=== PATIENT | female | born 1955 | race Caucasian/White ===

== ENCOUNTER 2016-07-19 09:20 | Outpatient (CLI) | payer MEDICARE, OTHER ==
[2013-11-27 13:50] VITALS: BP 158/66
[2016-07-19 10:26] LABS: eGFR (African) > 60; eGFR (Non-African) > 60
== END 2016-07-19 09:22 ==
LOC: LAB 09:20
PROVIDERS: ATTEND Nurse Practitioner
DX: E10.9 Type 1 diabetes mellitus without complications (principal)
CPT/HCPCS: 36415; 80053; 82043; 83036; 84443

== ENCOUNTER 2016-08-15 08:04 | Emergency (ER) | payer MEDICARE, OTHER ==
[2016-08-15] MEDS ORDERED: 0.9 % SODIUM CHLORIDE 1,000 ML IV ONE ×2 (08:24→09:49)
[2016-08-15] MEDS ORDERED: ONDANSETRON HCL/PF 4 MG/ 2ML VIAL IVP ONE (08:24)
--- NOTE | 2016-08-15 08:25 | ED Physician Documentation ---
General Adult - HISTORIAN Historian: patient - HPI Stated Complaint: Nausea/vomiting, Diabetes I Chief Complaint: General Adult Timing: still present Severity: moderate Further Comments: yes (Pt is a 60 yo female with DMI on an insulin pump, who has had n/v/diarrhea that began 1 week ago. Pt had a blood glucose=60 this am at home. 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.) - ROS CONST: weakness, other (malaise) EYES/ENT: none CVS/RESP: none GI/: diarrhea MS/SKIN/LYMPH: none - PAST HX Past History: other (DMI with insulin pump) Allergies/Adverse Reactions: Allergies Allergy/AdvReac Type Severity Reaction Status Date / Time No Known Allergies Allergy Verified 08/15/16 08:41 Home Medications: Ambulatory Orders Medication Instructions Recorded Gabapentin [Gabapentin] 600 mg PO TID 04/22/13 Glucagon,Human Recombinant 1 mg IM DAILY 04/22/13 [Glucagon] Levothyroxine Sodium 75 mcg PO DAILY 04/22/13 Quinapril HCl [Accupril] 20 mg PO DAILY 04/22/13 Simvastatin [Simvastatin] 40 mg PO DAILY 04/22/13 Pantoprazole Sodium [Protonix] 20 mg PO DAILY u2 12/02/15 Ciprofloxacin HCl [Cipro] 500 mg PO BID #10 tablet 08/15/16 - SOCIAL HX Smoking History: non-smoker - FAMILY HX Family History: No - VITAL SIGNS Vital Signs: Vital Signs Temp Pulse Resp BP Pulse Ox 158/66 11/27/13 13:46 - REVIEWED ASSESSMENTS Nursing Assessment Reviewed: Yes Vitals Reviewed: Yes Progress - Progress Progress: NS IVF 1 L x 2 Zofran 4 mg IV much improved wbc=18.0 with L shift Will Rx Ciprofloxacin 500 mg. Take one by mouth every 12 hrs for 5 days. General Adult Physical Exam - PHYSICAL EXAM GENERAL APPEARANCE: mild distress EENT: eye inspection normal, ENT inspection normal, pharynx normal NECK: normal inspection, supple RESPIRATORY: no resp distress, chest non-tender, breath sounds normal CVS: reg rate & rhythm, heart sounds normal ABDOMEN: soft, no organomegaly, normal bowel sounds, tenderness (diffuse abd tenderness) BACK: normal inspection, no CVA tenderness SKIN: warm/dry, normal color EXTREMITIES: non-tender, normal range of motion, no evidence of injury NEURO: oriented X3, motor nml, sensation nml Discharge Clincal Impression: Hypoglycemia, DMI, Gastroenteritis Prescriptions: Ciprofloxacin HCl [Cipro] 500 mg PO BID #10 tablet Referrals: Francisco Hines MD [Primary Care Provider] - Home Medications: Ambulatory Orders Gabapentin [Gabapentin] 600 mg PO TID 04/22/13 Glucagon,Human Recombinant [Glucagon] 1 mg IM DAILY 04/22/13 Levothyroxine Sodium 75 mcg PO DAILY 04/22/13 Quinapril HCl [Accupril] 20 mg PO DAILY 04/22/13 Simvastatin [Simvastatin] 40 mg PO DAILY 04/22/13 Pantoprazole Sodium [Protonix] 20 mg PO DAILY u2 12/02/15 Ciprofloxacin HCl [Cipro] 500 mg PO BID #10 tablet 08/15/16 Condition: Good Disposition: 01 HOME, SELF-CARE Decision to Admit: NO Decision Time: 10:48
[2016-08-15 08:47] LABS: BASOPHILS % 0.3 (0.0-1.5); EOSINOPHILS % 0.3 % (0.0-6.8); LYMPHOCYTES # 1.3 # k/uL (0.6-4.0); MEAN CORPUSCULAR HEMOGLOBIN 29.3 pg (28.0-34.0); MONOCYTES # 0.6 # k/uL (0.0-0.9); MONOCYTES % 3.3 % (0.0-11.0); NEUTROPHILS # 15.8 # k/uL (1.4-7.7)
[2016-08-15 09:08] LABS: eGFR (African) > 60; eGFR (Non-African) > 60
[2016-08-15 09:53] LABS: APPEARANCE,URINE Clear (CLEAR); COLOR,URINE Yellow (YELLOW); OCCULT BLOOD,URINE Negative (NEGATIVE); UROBILINOGEN URINE 0.2 Eu (0.2-1.0)
[2016-08-15 10:04] LABS: AMORPHOUS SEDIMENT,UR FEW (NEGATIVE)
[2016-08-15 11:04] VITALS: BP 167/72
== END 2016-08-15 11:03 | disposition home or self-care (01) ==
LOC: ED 08:04
DX: E10.52 Type 1 diabetes mellitus with diabetic peripheral angiopathy with gangrene (principal); Z79.4 Long term (current) use of insulin; Z96.41 Presence of insulin pump (external) (internal); K52.9 Noninfective gastroenteritis and colitis, unspecified
CPT/HCPCS: 80053; 81002; 85025; J2405; J7030; 96361; 96374; 99283; 99284; S1016

== ENCOUNTER 2016-09-05 15:29 | Outpatient (CLI) | payer MEDICARE, OTHER ==
--- NOTE | 2016-09-05 16:15 | Diagnostic Imaging Report ---
[facility] [address] [facility] [address] 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 HX OF FRACTURE. PT DIABETIC STATES DOCTOR IS LOOKING FOR AN INFECTION Findings: Comparison: March 22, 2016 Old fracture deformities of the shafts of the left 2nd, 3rd and 4th metatarsals Vascular calcification is present No acute fracture No osseous erosion or periosteal reaction is seen. Sclerosis left great toe terminal phalynx Impression: 1. No evidence of osseous erosion or periosteal reaction, no plain radiographic evidence of osteomyelitis. 2. Old fracture deformities left 2nd to 4th metatarsals. Sclerosis left great toe terminal phalynx 3.Vascular calcification Electronically signed on Sep 05, 2016 4:10:34 PM RAMP SUPERVISOR by: Clarita COOK
== END 2016-09-05 15:30 ==
LOC: RAD 15:29
PROVIDERS: ATTEND Family Medicine
DX: M79.675 Pain in left toe(s) (principal)
CPT/HCPCS: 73660

== ENCOUNTER 2016-09-20 13:07 | Outpatient (CLI) | payer MEDICARE, OTHER | END 2016-09-20 13:30 | LOC: POD 13:07 | PROVIDERS: ATTEND Podiatrist | DX: E11.9 Type 2 diabetes mellitus without complications (principal); M20.22 Hallux rigidus, left foot | CPT/HCPCS: G0463 ==

== ENCOUNTER 2016-10-27 09:34 | Outpatient (CLI) | payer MEDICARE, OTHER ==
[2016-10-27 10:22] LABS: eGFR (African) > 60; eGFR (Non-African) > 60
== END 2016-10-27 09:35 ==
LOC: LAB 09:34
PROVIDERS: ATTEND Nurse Practitioner
DX: E10.9 Type 1 diabetes mellitus without complications (principal)
CPT/HCPCS: 36415; 80053; 80061; 83036

== ENCOUNTER 2017-01-18 11:25 | Outpatient (CLI) | payer MEDICARE, OTHER ==
[2017-01-18 11:45] LABS: BASOPHILS % 0.5 (0.0-1.5); EOSINOPHILS % 0.7 % (0.0-6.8); MEAN CORPUSCULAR VOLUME 91.6 fl (80.0-100.0); MONOCYTES % 3.6 % (0.0-11.0); NEUTROPHILS # 6.8 # k/uL (1.4-7.7)
== END 2017-01-18 11:26 ==
LOC: LAB 11:25
PROVIDERS: ATTEND Physician Assistant
DX: R53.83 Other fatigue (principal)
CPT/HCPCS: 36415; 84443; 85025

== ENCOUNTER 2017-01-25 19:48 | Emergency (ER) | payer MEDICARE, OTHER ==
[2017-01-25] MEDS ORDERED: ONDANSETRON HCL 4 MG TAB.RAPDIS ONE (19:57)
[2017-01-25] MEDS ORDERED: ONDANSETRON HCL/PF 4 MG/ 2ML VIAL ONE (20:08)
[2017-01-25] MEDS ORDERED: DEXTROSE 50% 50 ML DISP.SYRIN IVP ONE (20:08)
[2017-01-25] MEDS ORDERED: ONDANSETRON HCL/PF 4 MG/ 2ML VIAL IVP ONE (20:09)
[2017-01-25] MEDS ORDERED: ONDANSETRON HCL 4 MG TAB.RAPDIS PO ONE (20:09)
[2017-01-25 20:22] LABS: BASOPHILS % 0.8 (0.0-1.5); EOSINOPHILS % 2.1 % (0.0-6.8); MEAN CORPUSCULAR HEMOGLOBIN 30.2 pg (28.0-34.0); MEAN CORPUSCULAR VOLUME 92.9 fl (80.0-100.0); MONOCYTES % 6.7 % (0.0-11.0)
[2017-01-25] MEDS ORDERED: 0.9 % SODIUM CHLORIDE 1,000 ML IV ONE ×2 (20:47→20:50)
--- NOTE | 2017-01-25 21:23 | ED Physician Documentation ---
Seizure - HISTORIAN Historian: spouse - HPI Chief Complaint: Seizure Additional Information: she is diabetic, that has seizures when blood glucose gets low. Her monitors her health very well. He was present when this occurred. She was standing in the kitchen and then fell, he got her up to chair, checked her BS and it was 50, he attempted to give her sugar pills, but she was seizing so he called EMS. this occurs freq with her and he can usually take care of it at home. She has been lethargic past 2 weeks and was worked up in her PCP office this week. She has had 1mg glucogon and 25mg D50. her BS is currently 171, but she is a little post-prandial and nauseated, which her says is typical. she had no injury associated with this. Timing/Onset/Duration: single episode Last known Well Date: 01/25/17 Last Known Well Time: 20:15 Last known Well Code/Unknown Code: Known Witnessed By: family Preceding Symptoms: other (she has an insulin pump and her doesnt think she ate much today. her siezures always occur due to low blood sugar) Character of Seizure(s): lost consciousness, unresponsiveness, "shaking all over " Postictal Symptoms: other (sleepy) Location of Injury: none Further Comments: no - ROS NEURO/PSYCH: denies: headache, dizziness EYES/ENT: none CVS/RESP: none GI/: nausea. denies: adominal pain, vomiting MS/SKIN/LYMPH: none - PAST HX Previous seizure/seizure disorder: frequent, occasional Etiology: etiology Other History: none Surgeries/Procedures: none Immunizations: UTD Allergies/Adverse Reactions: Allergies Allergy/AdvReac Type Severity Reaction Status Date / Time No Known Allergies Allergy Verified 01/25/17 20:06 Home Medications: Ambulatory Orders Medication Instructions Recorded Gabapentin [Gabapentin] 600 mg PO TID 04/22/13 Glucagon,Human Recombinant 1 mg IM DAILY 04/22/13 [Glucagon] Levothyroxine Sodium 75 mcg PO DAILY 04/22/13 Quinapril HCl [Accupril] 20 mg PO DAILY 04/22/13 Simvastatin [Simvastatin] 40 mg PO DAILY 04/22/13 Ciprofloxacin HCl [Cipro] 500 mg PO BID #10 tablet 08/15/16 - SOCIAL HX Smoking History: non-smoker Alcohol Use: none Drug Use: none - FAMILY HX Family History: none - VITAL SIGNS Vital Signs: Vital Signs Temp Pulse Resp BP Pulse Ox 97.9 F 79 12 161/70 97 01/25/17 19:48 01/25/17 19:48 01/25/17 19:48 01/25/17 19:48 01/25/17 19:48 - REVIEWED ASSESSMENTS Nursing Assessment Reviewed: Yes Vitals Reviewed: Yes Progress - Progress Progress: she's feeling better, nausea has resolved, labs look ok. she desires to go home ED Results Lab/Radiology - Lab Results Lab Results: Lab Results 01/25/17 01/25/17 20:16 20:16 WBC 12.80 K/ul H K/ul (4.00-12.00) RBC 3.92 M/ul M/ul (3.90-5.20) Hgb 11.8 g/dL L g/dL (12.0-16.0) Hct 36.4 % % (34.5-46.5) MCV 92.9 fl fl (80.0-100.0) MCH 30.2 pg pg (28.0-34.0) MCHC 32.5 g/dL g/dL (30.0-36.0) RDW 13.2 % % (11.3-14.3) Plt Count 315 K/mm3 K/mm3 (130-400) Neut % (Auto) 54.6 % % (39.0-79.0) Lymph % (Auto) 32.9 % % (16.0-50.0) [place] % (Auto) 6.7 % % (0.0-11.0) Eos % (Auto) 2.1 % % (0.0-6.8) Baso % (Auto) 0.8 (0.0-1.5) Neut # (Auto) 7.0 # k/uL # k/uL (1.4-7.7) Lymph # (Auto) 4.2 # k/uL H # k/uL (0.6-4.0) [place] # (Auto) 0.8 # k/uL # k/uL (0.0-0.9) Eos # (Auto) 0.3 # k/uL # k/uL (0.0-0.6) Baso # (Auto) 0.1 # k/uL # k/uL (0.0-0.5) Reactive Lymphs % 3.0 % % (0.0-5.0) Reactive Lymphs # 0.4 # k/uL # k/uL (0.0-0.8) Sodium 143 mmol/L mmol/L (136-145) Potassium 4.0 mmol/L mmol/L (3.5-5.0) Chloride 102 mmol/L mmol/L (98-110) Carbon Dioxide 22 mmol/L mmol/L (20-32) BUN 33 mg/dL H mg/dL (10-26) Creatinine 2.8 mg/dL H mg/dL (0.4-1.5) Estimated Creat Clear 28 Est GFR ( Amer) 22 L (60 - ) Est GFR (Non-Af Amer) 18 L (60 - ) Glucose 41 mg/dL L mg/dL (70-99) Calcium 9.8 mg/dL mg/dL (8.5-10.5) Total Bilirubin 0.2 mg/dL mg/dL (0.2-1.2) AST 32 U/L U/L (0-41) ALT 19 U/L U/L (0-45) Alkaline Phosphatase 100 U/L U/L (46-116) Total Protein 7.3 g/dL g/dL (6.0-8.5) Albumin 4.6 g/dL g/dL (3.0-5.5) - Orders Orders: ED Orders Category Date Time Status CBC/PLATELET/DIFF Routine Lab 01/25/17 20:16 Completed CMP Routine Lab 01/25/17 20:16 Completed 0.9 % Sodium Chloride [Normal Saline] 1,000 ml Med 01/25/17 20:47 Discontinued IV .STK-MED 0.9 % Sodium Chloride [Normal Saline] 1,000 ml Med 01/25/17 20:50 Active IV Q1H Chem Sticks Med 01/25/17 19:48 Ordered 1 each CHEMQ PRN Dextrose 50% [Dextrose 50%-Water Syringe] Med 01/25/17 20:08 Discontinued 25 ml IVP NOW ONE Ondansetron HCl Rapdis [Zofran Odt] Med 01/25/17 19:57 Discontinued 4 mg .ROUTE .STK-MED ONE Ondansetron HCl Rapdis [Zofran Odt] Med 01/25/17 20:09 Discontinued 4 mg PO NOW ONE Ondansetron HCl/Pf [Zofran 4 mg/2 ml] Med 01/25/17 20:08 Discontinued 4 mg .ROUTE .STK-MED ONE Ondansetron HCl/Pf [Zofran 4 mg/2 ml] Med 01/25/17 20:09 Discontinued 4 mg IVP NOW ONE Oxygen Daily Oxygen 01/25/17 20:15 Ordered Seizure Physical Exam - Physical Exam General Appearance: no acute distress, alert, lethargic Altered Mental Status Higher Functions: oriented x3, no evidence of acute CVA, abnml respond to command, eyes open, slow to respond EENT: nml eye inspection, nml ENT inspection Neck/Back: normal inspection. No: lymphadenopathy, carotid bruit Respiratory: no resp. distress, breath sounds nml, no evidence of rib injury. No: wheezes, rales, rhonchi, crepitus CVS: reg rate & rhythm, heart sounds normal, equal pulses Abdomen: non-tender Skin: warm/dry, normal color Extremities: normal inspection, no pedal edema Observed Seizure Activity in ED: generalized - Nexus Criteria Neg Nexus Criteria: Nexus criteria neg Discharge Clincal Impression: Hypoglycemia, Seizure Referrals: Francisco Hines MD [Primary Care Provider] - 2 Days Home Medications: Ambulatory Orders Gabapentin [Gabapentin] 600 mg PO TID 04/22/13 Glucagon,Human Recombinant [Glucagon] 1 mg IM DAILY 04/22/13 Levothyroxine Sodium 75 mcg PO DAILY 04/22/13 Quinapril HCl [Accupril] 20 mg PO DAILY 04/22/13 Simvastatin [Simvastatin] 40 mg PO DAILY 04/22/13 Ciprofloxacin HCl [Cipro] 500 mg PO BID #10 tablet 08/15/16 Condition: Good Disposition: 01 HOME, SELF-CARE Decision to Admit: NO Date of Decison to Admit: 01/25/17 Decision Time: 21:19
[2017-01-25 22:08] VITALS: BP 143/65
== END 2017-01-25 21:55 | disposition home or self-care (01) ==
LOC: ED 19:48
DX: E11.649 Type 2 diabetes mellitus with hypoglycemia without coma (principal); G40.409 Other generalized epilepsy and epileptic syndromes, not intractable, without status epilepticus
CPT/HCPCS: 80053; 85025; A9270; J2405; J7030; 96361; 96374; 96375; 99283; S1016

== ENCOUNTER 2017-01-27 10:25 | Outpatient (CLI) | payer MEDICARE, OTHER ==
[2017-01-27 11:09] LABS: eGFR (African) 39; eGFR (Non-African) 33
== END 2017-01-27 10:26 ==
LOC: LAB 10:25
PROVIDERS: ATTEND Nurse Practitioner
DX: E10.9 Type 1 diabetes mellitus without complications (principal)
CPT/HCPCS: 36415; 80053; 80061; 83036; 84443

== ENCOUNTER 2017-04-24 10:36 | Outpatient (CLI) | payer MEDICARE, OTHER ==
[2017-04-24 11:30] LABS: eGFR (African) > 60; eGFR (Non-African) 41
== END 2017-04-24 10:37 ==
LOC: LAB 10:36
PROVIDERS: ATTEND Nurse Practitioner
DX: E10.9 Type 1 diabetes mellitus without complications (principal)
CPT/HCPCS: 36415; 80053; 83036; 84443

== ENCOUNTER 2017-07-27 09:21 | Outpatient (CLI) | payer MEDICARE, OTHER ==
[2017-07-27 10:13] LABS: eGFR (African) > 60; eGFR (Non-African) > 60
== END 2017-07-27 09:22 ==
LOC: LAB 09:21
PROVIDERS: ATTEND Nurse Practitioner
DX: E10.9 Type 1 diabetes mellitus without complications (principal)
CPT/HCPCS: 36415; 80053; 80061; 82043; 83036

== ENCOUNTER 2017-08-11 20:31 | Emergency (ER) | payer MEDICARE, OTHER ==
[2017-08-11 21:00] LABS: BASOPHILS % 0.6 (0.0-1.5); EOSINOPHILS % 1.1 % (0.0-6.8); MEAN CORPUSCULAR HEMOGLOBIN 30.6 pg (28.0-34.0); MEAN CORPUSCULAR VOLUME 90.9 fl (80.0-100.0); MONOCYTES % 6.8 % (0.0-11.0); NEUTROPHILS # 6.3 # k/uL (1.4-7.7)
[2017-08-11] MEDS: ACETAMINOPHEN 500 MG TABLET PO ONE (21:02)
[2017-08-11] MEDS: 0.9 % SODIUM CHLORIDE 1,000 ML IV ONE (21:02)
[2017-08-11] MEDS: GUAIFENESIN/CODEINE 10 ML S/F LIQUID DOSE CUP PO ONE ×2 (21:02→21:41)
[2017-08-11] MEDS: KETOROLAC TROMETHAMINE 30 MG/1ML VIAL IVP ONE (21:05)
[2017-08-11 21:14] LABS: eGFR (African) 42; eGFR (Non-African) 35
--- NOTE | 2017-08-11 21:22 | ED Physician Documentation ---
Upper Respiratory Symptoms - HISTORIAN Historian: patient - HPI Chief Complaint: Cough/ Upper Respiratory Onset: days ago Further Comments: yes (61 year old female patient presents with complaints of "flu". Patient states she finished her tamiflu today, "I feel worse". C/O severe cough, concerned she has pneumonia. Using robitussin for cough) - ROS CONST/EYES: other (body aches) CVS/RESP: other (cough). denies: chest pain, shortness of breath, palpitations LYMPH: denies: leg swelling, rash, swollen glands, ankle swelling, other GI/: none NEURO/PSYCH: denies: fainting, dizziness, confusion, anxiety, depression, other MS/SKIN: denies: joint pain, muscle aches, rash, other - PAST HX Lung Disease: none PE Risk Factors: hypertension Other History: diabetes Type 2, other (hypothyroidism, HLD) Allergies/Adverse Reactions: Allergies Allergy/AdvReac Type Severity Reaction Status Date / Time No Known Allergies Allergy Verified 08/11/17 20:42 Home Medications: Ambulatory Orders Medication Instructions Recorded Gabapentin [Gabapentin] 600 mg PO TID 04/22/13 Glucagon,Human Recombinant 1 mg IM DAILY 04/22/13 [Glucagon] Levothyroxine Sodium 75 mcg PO DAILY 04/22/13 Quinapril HCl [Accupril] 20 mg PO DAILY 04/22/13 Simvastatin [Simvastatin] 40 mg PO DAILY 04/22/13 Ciprofloxacin HCl [Cipro] 500 mg PO BID #10 tablet 08/15/16 - SOCIAL HX Smoking History: non-smoker - FAMILY HX Family History: none - VITAL SIGNS Vital Signs: Vital Signs Temp Pulse Resp BP Pulse Ox 99.5 F 82 16 146/60 100 08/11/17 21:50 08/11/17 21:50 08/11/17 21:50 08/11/17 21:50 08/11/17 21:50 - REVIEWED ASSESSMENTS Nursing Assessment Reviewed: Yes Vitals Reviewed: Yes Progress - Progress Progress: Patient medicated in ER with robitussin AC, toradol, tylenol and 1L NS. At discharge, patient states she feels much better. ED Results Lab/Radiology - Lab Results Lab Results: Lab Results 08/11/17 08/11/17 20:55 20:55 WBC 9.00 K/ul K/ul (4.00-12.00) RBC 3.83 M/ul L M/ul (3.90-5.20) Hgb 11.7 g/dL L g/dL (12.0-16.0) Hct 34.8 % % (34.5-46.5) MCV 90.9 fl fl (80.0-100.0) MCH 30.6 pg pg (28.0-34.0) MCHC 33.7 g/dL g/dL (30.0-36.0) RDW 12.6 % % (11.3-14.3) Plt Count 359 K/mm3 K/mm3 (130-400) Neut % (Auto) 69.9 % % (39.0-79.0) Lymph % (Auto) 19.9 % % (16.0-50.0) [place] % (Auto) 6.8 % % (0.0-11.0) Eos % (Auto) 1.1 % % (0.0-6.8) Baso % (Auto) 0.6 (0.0-1.5) Neut # (Auto) 6.3 # k/uL # k/uL (1.4-7.7) Lymph # (Auto) 1.8 # k/uL # k/uL (0.6-4.0) [place] # (Auto) 0.6 # k/uL # k/uL (0.0-0.9) Eos # (Auto) 0.1 # k/uL # k/uL (0.0-0.6) Baso # (Auto) 0.1 # k/uL # k/uL (0.0-0.5) Reactive Lymphs % 1.7 % % (0.0-5.0) Reactive Lymphs # 0.2 # k/uL # k/uL (0.0-0.8) Sodium 141 mmol/L mmol/L (136-145) Potassium 3.5 mmol/L mmol/L (3.5-5.1) Chloride 96 mmol/L L mmol/L (98-107) Carbon Dioxide 25 mmol/L mmol/L (22-30) BUN 25 mg/dL H mg/dL (7-17) Creatinine 1.60 mg/dL H mg/dL (0.52-1.04) Est GFR ( Amer) 42 L (60 - ) Est GFR (Non-Af Amer) 35 L (60 - ) Glucose 111 mg/dL H mg/dL (74-106) Calcium 8.9 mg/dL mg/dL (8.4-10.2) Total Bilirubin 0.3 mg/dL mg/dL (0.2-1.3) AST 26 U/L U/L (15-46) ALT 26 U/L U/L (13-69) Alkaline Phosphatase 117 U/L U/L (38-126) Total Protein 7.7 g/dL g/dL (6.3-8.2) Albumin 4.1 g/dL g/dL (3.5-5.0) - Orders Orders: ED Orders Category Date Time Status Place IV Lock 1T Care 08/11/17 20:42 Active CBC/PLATELET/DIFF Stat Lab 08/11/17 20:55 Completed CMP Stat Lab 08/11/17 20:55 Completed INFLUENZA A&B Stat Lab 08/11/17 20:42 Ordered 0.9 % Sodium Chloride [Normal Saline] 1,000 ml Med 08/11/17 20:47 Discontinued IV NOW Acetaminophen [Tylenol Extra Strength] Med 08/11/17 20:43 Discontinued 1,000 mg PO NOW ONE Guaifenesin/Codeine Phosphate [Robitussin AC] Med 08/11/17 20:54 Discontinued 10 ml PO NOW ONE Guaifenesin/Codeine Phosphate [Robitussin AC] Med 08/11/17 21:22 Discontinued 10 ml PO NOW ONE Ketorolac Tromethamine [Toradol] Med 08/11/17 20:43 Discontinued 30 mg IVP NOW ONE Upper Respiratory Symptoms - EXAM General Appearance: moderate distress EENT: eyes nml inspection, nml ENT inspection, lids & conjunct. nml, PERRL, ear nml, nose nml, pharynx nml, airway nml Respiratory: no resp. distress, breath sounds nml, no pain on inspiration, speaks full sentences, no pleuritic chest pain. 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 Rest Have plenty of sleep and rest. Stay away from others while you have a cold or flu. Take simple painkillers Such as Tylenol or ibuprofen, to help relieve headaches, muscles aches and pains and fever. Keep hydrated (drink plenty of fluids) This will help keep your throat moist and replace fluid lost due to a fever and sweating. Plenty of water is best. Avoid caffeine and alcohol as they will make you more dehydrated. Eat soft food If you have a sore throat soft foods are easier to swallow. Foods such as chicken soup may help a sore throat and reduce mucous. wind up operator an over the counter decongestant such as pseudoped, dayquil and Nyquil at your pharmacy. You may want to try Vicks rub on your chest and/or feet. ( Caution: Dayquil and Nyquil contain 325mg of Tylenol/acetaminophen per tablespoon) Cough drops as needed for cough and sore throat. Increase your fluid intake juices, hot tea, non-caffeinated beverages Vitamin C may be helpful in decreasing the length of your cold. Use a humidifier in the room where you sleep. You can also sit in a steam filled bathroom 1-2 times a day. Tylenol every 4 hours 650mg -1000mg (do not exceed 4000mg in 24 hours) as needed for fever, pain and body aches. Alternate with Ibuprofen Ibuprofen 600-800mg every 6 hours as needed for fever, pain and body aches. See your primary care doctor if your symptoms become worse or do not improve in the next 3-4 days. Condition: Stable Disposition: 01 HOME, SELF-CARE Decision to Admit: NO Decision Time: 21:21
[2017-08-11 21:58] VITALS: BP 146/60
== END 2017-08-11 21:50 | disposition home or self-care (01) ==
LOC: ED 20:31
DX: J11.1 Influenza due to unidentified influenza virus with other respiratory manifestations (principal); I10 Essential (primary) hypertension; E11.9 Type 2 diabetes mellitus without complications; E03.9 Hypothyroidism, unspecified; E78.5 Hyperlipidemia, unspecified
CPT/HCPCS: 80053; 85025; 87400; 96365; 96375; 99283; J1885; J7030; S1016

== ENCOUNTER 2017-10-24 11:08 | Outpatient (CLI) | payer MEDICARE, OTHER ==
[2017-10-24 11:49] LABS: eGFR (African) > 60; eGFR (Non-African) > 60
== END 2017-10-24 11:10 ==
LOC: LAB 11:08
PROVIDERS: ATTEND Nurse Practitioner
DX: E10.9 Type 1 diabetes mellitus without complications (principal)
CPT/HCPCS: 36415; 80053; 83036; 84443

== ENCOUNTER 2018-01-26 11:31 | Outpatient (CLI) | payer MEDICARE, OTHER ==
[2018-01-26 12:38] LABS: eGFR (African) > 60; eGFR (Non-African) > 60
== END 2018-01-26 11:36 ==
LOC: LAB 11:31
PROVIDERS: ATTEND Nurse Practitioner
DX: E10.9 Type 1 diabetes mellitus without complications (principal)
CPT/HCPCS: 36415; 80053; 83036

== ENCOUNTER 2018-02-08 12:18 | Outpatient (CLI) | payer MEDICARE, OTHER ==
[2018-02-08 13:02] LABS: eGFR (African) > 60; eGFR (Non-African) > 60
== END 2018-02-08 12:20 ==
LOC: LAB 12:18
PROVIDERS: ATTEND Nurse Practitioner
DX: E10.9 Type 1 diabetes mellitus without complications (principal)
CPT/HCPCS: 36415; 80048

== ENCOUNTER 2018-04-24 10:37 | Outpatient (CLI) | payer MEDICARE, OTHER ==
[2018-04-24 11:53] LABS: eGFR (Non-African) 44
== END 2018-04-24 10:40 ==
LOC: LAB 10:37
PROVIDERS: ATTEND Nurse Practitioner
DX: E10.9 Type 1 diabetes mellitus without complications (principal)
CPT/HCPCS: 36415; 80053; 83036; 84443

== ENCOUNTER 2018-05-14 16:37 | Outpatient (CLI) | payer MEDICARE, OTHER | END 2018-05-14 16:40 | LOC: LABRHC 16:37 | PROVIDERS: ATTEND Family Medicine | DX: N30.00 Acute cystitis without hematuria (principal) | CPT/HCPCS: 87086 ==

== ENCOUNTER 2018-07-25 08:04 | Outpatient (CLI) | payer MEDICARE, OTHER ==
[2018-07-25 08:45] LABS: eGFR (Non-African) > 60
== END 2018-07-25 08:06 ==
LOC: LAB 08:04
PROVIDERS: ATTEND Nurse Practitioner
DX: E10.9 Type 1 diabetes mellitus without complications (principal)
CPT/HCPCS: 36415; 80053; 82043; 82570; 83036; 84443

== ENCOUNTER 2018-08-09 06:10 | Emergency (ER) | payer MEDICARE, OTHER ==
[2018-08-09] MEDS ORDERED: DEXTROSE 50% 50 ML DISP.SYRIN IVP ONE (06:15)
[2018-08-09] MEDS ORDERED: DEXTROSE 50% 50 ML DISP.SYRIN IVP STA (06:25)
[2018-08-09 07:12] LABS: eGFR (Non-African) > 60
[2018-08-09 07:17] LABS: MEAN CORPUSCULAR HEMOGLOBIN 29.1 pg (28.0-34.0)
[2018-08-09 07:18] LABS: BASOPHILS % 0.5 (0.0-1.5); EOSINOPHILS % 2.1 % (0.0-6.8); MONOCYTES % 5.6 % (0.0-11.0); NEUTROPHILS # 5.3 # k/uL (1.4-7.7)
[2018-08-09 07:29] VITALS: BP 142/55
--- NOTE | 2018-08-09 07:42 | ED Physician Documentation ---
General Adult - HISTORIAN Historian: patient - HPI Stated Complaint: Hypoglycemia Chief Complaint: General Adult Further Comments: yes (62 year old female patient brought in with hypoglycemia. and patient did not hear hypoglycemia monitor go off. D50 given on arrival.) - ROS CONST: no problems EYES/ENT: none CVS/RESP: none GI/: none MS/SKIN/LYMPH: none - PAST HX Past History: other (hypoglycemia) Other History: other (HLD, hypothyroidism) Allergies/Adverse Reactions: Allergies Allergy/AdvReac Type Severity Reaction Status Date / Time No Known Allergies Allergy Verified 08/11/17 20:42 Home Medications: Ambulatory Orders Medication Instructions Recorded Gabapentin 600 mg PO TID 04/22/13 Glucagon,Human Recombinant 1 mg IM DAILY 04/22/13 [Glucagon] Levothyroxine Sodium 75 mcg PO DAILY 04/22/13 Quinapril HCl [Accupril] 20 mg PO DAILY 04/22/13 Simvastatin 40 mg PO DAILY 04/22/13 - SOCIAL HX Smoking History: non-smoker - FAMILY HX Family History: No - VITAL SIGNS Vital Signs: Vital Signs Temp Pulse Resp BP Pulse Ox 97.3 F L 78 16 142/55 92 08/09/18 06:10 08/09/18 07:28 08/09/18 07:28 08/09/18 07:28 08/09/18 07:28 - REVIEWED ASSESSMENTS Nursing Assessment Reviewed: Yes Vitals Reviewed: Yes Progress - Progress Progress: Bedside glucose 47 - 12.5G D50 given. Patient became more awake and alter Patient able to eat snacks, states she is feeling better. Reports exercising last night before going to bed. Encouraged patient to eat a snack after exercising. At discharge patient states she is feeling much better; hypoglycemia alarm in place. ED Results Lab/Radiology - Lab Results Lab Results: Lab Results 08/09/18 08/09/18 06:10 06:10 WBC 7.70 K/ul K/ul (4.00-12.00) RBC 4.77 M/ul M/ul (3.90-5.20) Hgb 13.9 g/dL g/dL (12.0-16.0) Hct 42.9 % % (34.5-46.5) MCV 90.0 fl fl (80.0-100.0) MCH 29.1 pg pg (28.0-34.0) MCHC 32.4 g/dL g/dL (30.0-36.0) RDW 12.8 % % (11.3-14.3) Plt Count 335 K/mm3 K/mm3 (130-400) Neut % (Auto) 69.1 % % (39.0-79.0) Lymph % (Auto) 22.7 % % (16.0-50.0) [place] % (Auto) 5.6 % % (0.0-11.0) Eos % (Auto) 2.1 % % (0.0-6.8) Baso % (Auto) 0.5 (0.0-1.5) Neut # (Auto) 5.3 # k/uL # k/uL (1.4-7.7) Lymph # (Auto) 1.7 # k/uL # k/uL (0.6-4.0) [place] # (Auto) 0.4 # k/uL # k/uL (0.0-0.9) Eos # (Auto) 0.2 # k/uL # k/uL (0.0-0.6) Baso # (Auto) 0.0 # k/uL # k/uL (0.0-0.5) Sodium 137 mmol/L mmol/L (136-145) Potassium 3.9 mmol/L mmol/L (3.5-5.1) Chloride 101 mmol/L mmol/L (98-107) Carbon Dioxide 29 mmol/L mmol/L (22-30) BUN 28 mg/dL H mg/dL (7-17) Creatinine 1.12 mg/dL H mg/dL (0.52-1.04) Estimated Creat Clear 64 Est GFR ( Amer) > 60 (60 - ) Est GFR (Non-Af Amer) > 60 (60 - ) Glucose 49 mg/dL L mg/dL (74-106) Calcium 9.2 mg/dL mg/dL (8.4-10.2) Total Bilirubin 0.4 mg/dL mg/dL (0.2-1.3) AST 30 U/L U/L (15-46) ALT 23 U/L U/L (13-69) Alkaline Phosphatase 108 U/L U/L (38-126) Total Protein 7.4 g/dL g/dL (6.3-8.2) Albumin 4.5 g/dL g/dL (3.5-5.0) - Orders Orders: ED Orders Category Date Time Status Place IV Lock 1T Care 08/09/18 06:52 Active CBC/PLATELET/DIFF Stat Lab 08/09/18 06:10 Completed CMP Stat Lab 08/09/18 06:10 Completed Chem Sticks Med 08/09/18 07:30 Ordered 1 each MC CHEMQ Dextrose 50% [Dextrose 50%-Water Syringe] Med 08/09/18 06:25 Discontinued 25 ml IVP NOW STA Dextrose 50% [Dextrose 50%-Water Syringe] Med 08/09/18 06:15 Discontinued 50 ml IVP .STK-MED ONE General Adult Physical Exam - PHYSICAL EXAM GENERAL APPEARANCE: moderate distress EENT: eye inspection normal, [place] RESPIRATORY: no resp distress CVS: reg rate & rhythm, heart sounds normal, equal pulses, no murmur, no gallop, PMI nml, no JVD, no friction rub, 24 SKIN: normal color, warm/dry, NR, INT, PAL, DR EXTREMITIES: non-tender, normal range of motion, no evidence of injury, no 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 Eat breakfast If you exercise before bed, eat a snack before going to sleep. Condition: Stable Disposition: HOME, SELF-CARE Decision to Admit: NO Decision Time: 07:41
== END 2018-08-09 07:52 | disposition home or self-care (01) ==
LOC: ED 06:10
DX: E16.2 Hypoglycemia, unspecified (principal)
CPT/HCPCS: 36415; 80053; 85025; 96374; 99283; 99284; S1016

== ENCOUNTER 2018-10-23 09:55 | Outpatient (CLI) | payer MEDICARE, OTHER ==
[2018-10-23 10:49] LABS: eGFR (Non-African) > 60
== END 2018-10-23 10:00 | disposition home or self-care (01) ==
LOC: LAB 09:55
PROVIDERS: ATTEND Nurse Practitioner
DX: E10.9 Type 1 diabetes mellitus without complications (principal)
CPT/HCPCS: 36415; 80053; 80061; 83036; 84443

== ENCOUNTER 2019-01-18 15:25 | Inpatient (IN) | payer MEDICARE, OTHER ==
[2019-01-18 16:28] VITALS: BMI 29.9
--- NOTE | 2019-01-18 16:48 | History and Physical Report ---
History of Present Illnes - History of Present Illness Reason for Visit: Left Hip Fracture History of Present Illness: This is a 63 year old female with type I diabetes (last A1C 8.1 in October of this year), who is admitted from [facility] after being admitted there for a left hip fracture incurred in a ground leval fall at home, ( s/p replacement with injury on 01/09/19, and repair on 01/10/19. Her postoperative course was complicated by concerns for a CVA (MRI and carotids were negative), postoperative anemia (hemoglobin wa 8.3 yesterday), and an elevated troponin (up to .94, then down to .78). She had a cardiac catheterization performed on her hospitalization, which showed severe three vessel disease, but no intervention was undertaken. CT surgery was consulted, but it does not appear that she had any revascularization procedures. - Past Medical History Cardiac: CAD, HTN, Hyperlipidemia, Pulmonary hypertension Endocrine: Hypothyroidism - Past Surgical History Past Surgical History: Total Hip Replacement (Left after fall) - Past Social History Smoke: No Alcohol: None Drugs: None Lives: With Family Domestic Violence: Negative - Health Maintenance Health Maintenance: Cholesterol Influenza Vaccine: Current for this Influenza Season Pneumonia Vaccine: Yes - Unable to Obtain History Unable to Obtain: No Review of Systems - Review of Systems Constitutional: negative: Fever, Chills Eyes: negative: pain ENT: negative: Ear Pain Respiratory: negative: Cough Cardiovascular: negative: Chest Pain (at rest) Gastrointestinal: negative: Nausea, Vomiting Genitourinary: negative: Dysuria Musculoskeletal: negative: Neck Pain Skin: Other (right groin site from catheter is well healed.). negative: Rash Neurological: negative: Weakness, Incoordination - Medications/Allergies Allergies/Adverse Reactions: Allergies Allergy/AdvReac Type Severity Reaction Status Date / Time No Known Allergies Allergy Verified 01/09/19 12:11 Exam - Exam Vital Signs: Vital Signs (72 hours) 01/18/19 01/18/19 15:25 16:19 Temperature 97.3 F L 97.3 F L Pulse Rate [ 73 73 Left] Respiratory 16 16 Rate Blood Pressure 148/75 [Left Arm] Blood Pressure 152/45 [Right Arm] O2 Sat by Pulse 93 93 Oximetry General: Alert, Oriented to Person, Oriented to Place, Oriented to Time, Cooperative, No acute distress HEENT: Atraumatic, PERRLA Neck: No: Stridor Lungs: Clear to auscultation, Normal air movement, Speaks full Sentences Cardiovascular: Regular rate Murmur: No: Systolic Murmur Abdomen: Normal bowel sounds, Soft, No tenderness Genitourinary: Other (site from cardiac catheterization is well healed.) Male Genitourinary: No: Other Female Genitourinary: No: Other Integumentary: Normal, [place], Warm, Other (left hip incision is dry and dressed. No surrounding erythema) Extremities: No clubbing, No cyanosis Neurological: Normal speech, Other (antalgic gait) Psych/Mental Status: Mental status NL Assessment/Plan - Assessment/Plan (1) Hip fracture, left Status: Acute Current Visit: No Qualifiers: Encounter type: initial encounter Fracture type: closed Qualified Code(s): S72.002A - Fracture of unspecified part of neck of left femur, initial encounter for closed fracture Assessment: OT/PT Percocet for pain Xarelto for DVT prophylaxis (2) CAD (coronary artery disease) Status: Acute Current Visit: Yes Qualifiers: Coronary Disease-Associated Artery/Lesion type: [place] artery [place] vs. transplanted heart: [place] heart Associated angina: without angina Qualified Code(s): I25.10 - Atherosclerotic heart disease of [place] coronary artery without angina pectoris Assessment: Has plans to follow up with Dr. White on discharge Continue Atorvastatin, aspirin, Plavix (3) Type I diabetes mellitus Status: Acute Current Visit: Yes Assessment: Continue Insulin pump (4) Postoperative anemia Status: Acute Current Visit: Yes Assessment: Check CBC in am (5) Hypothyroidism Status: Acute Current Visit: Yes Qualifiers: Hypothyroidism type: acquired Qualified Code(s): E03.9 - Hypothyroidism, unspecified Assessment: Continue levothyroxine VTE Assessment - RISK FACTOR SCORE VTE RISK FACTOR SCORES: AGE OVER 60 YEARS, ANTICIPATED BED CONFINEMENT OR IMMOBILIZATION > 24 HOURS - RISK VTE MODERATE RISK: SCORE OF 2 (RISK PROXIMAL DVT 2-4%) PROPHYAXIS NEEDED (On Xarelto)
[2019-01-18] MEDS ORDERED: GABAPENTIN 300 MG CAPSULE PO SCH (18:00)
[2019-01-18] MEDS ORDERED: GABAPENTIN 300 MG CAPSULE ONE ×2 (18:32→18:33)
[2019-01-18] MEDS: CYCLOBENZAPRINE HCL 10 MG TABLET PO SCH (18:38)
[2019-01-18] MEDS: RIVAROXABAN 10 MG TABLET PO SCH (18:38)
[2019-01-18] MEDS: FERROUS SULFATE 325 MG TABLET PO SCH (18:38)
[2019-01-18] MEDS: GABAPENTIN 300 MG CAPSULE PO SCH (18:38)
[2019-01-18] MEDS: oxyCODONE HCL 5 MG TABLET PO PRN (18:40)
[2019-01-18] MEDS: ATORVASTATIN CALCIUM 20 MG TABLET PO SCH (20:29)
[2019-01-18] MEDS: METOPROLOL TARTRATE 25 MG TABLET PO SCH (20:30)
[2019-01-18] MEDS: CALCIUM/VIT D 500MG/200 UNIT TABLET PO SCH (20:31)
[2019-01-18] MEDS: SENNOSIDES/DOCUSATE 8.6/50 MG 1 EACH TABLET PO SCH (20:32)
[2019-01-19] MEDS: oxyCODONE HCL 5 MG TABLET PO PRN ×4 (00:57→21:40)
[2019-01-19] MEDS: PANTOPRAZOLE SODIUM 40 MG TABLET.DR PO SCH (06:16)
[2019-01-19] MEDS: LEVOTHYROXINE SODIUM 50 MCG TABLET PO SCH (06:16)
[2019-01-19 06:36] LABS: BASOPHILS % 0.4 % (0.0-1.5); NEUTROPHILS # 6.6 # k/uL (1.4-7.7)
[2019-01-19 06:37] LABS: eGFR (Non-African) > 60
[2019-01-19] MEDS: ASPIRIN 81 MG CHEW TAB PO SCH (09:30)
[2019-01-19] MEDS: SENNOSIDES/DOCUSATE 8.6/50 MG 1 EACH TABLET PO SCH ×2 (09:32→21:30)
[2019-01-19] MEDS: CALCIUM/VIT D 500MG/200 UNIT TABLET PO SCH ×2 (09:32→21:30)
[2019-01-19] MEDS: FUROSEMIDE 20 MG TABLET PO SCH (09:32)
[2019-01-19] MEDS: PARoxetine HCL 10 MG TABLET PO SCH (09:33)
[2019-01-19] MEDS: CYCLOBENZAPRINE HCL 10 MG TABLET PO SCH ×3 (09:33→17:56)
[2019-01-19] MEDS: GABAPENTIN 300 MG CAPSULE PO SCH ×3 (09:35→17:57)
[2019-01-19] MEDS: CLOPIDOGREL BISULFATE 75 MG TABLET PO SCH (09:35)
[2019-01-19] MEDS: hydroCHLOROthiazide 25 MG TABLET PO SCH (10:44)
[2019-01-19] MEDS: LISINOPRIL 10 MG TABLET PO SCH (10:44)
[2019-01-19] MEDS: METOPROLOL TARTRATE 25 MG TABLET PO SCH ×2 (10:44→21:30)
[2019-01-19] MEDS: FERROUS SULFATE 325 MG TABLET PO SCH ×2 (11:36→17:59)
[2019-01-19] MEDS: RIVAROXABAN 10 MG TABLET PO SCH (17:57)
[2019-01-19] MEDS: ATORVASTATIN CALCIUM 20 MG TABLET PO SCH (21:30)
[2019-01-20] MEDS: oxyCODONE HCL 5 MG TABLET PO PRN ×3 (02:30→18:04)
[2019-01-20] MEDS: LEVOTHYROXINE SODIUM 50 MCG TABLET PO SCH (07:56)
[2019-01-20] MEDS: PANTOPRAZOLE SODIUM 40 MG TABLET.DR PO SCH (07:56)
[2019-01-20] MEDS: hydroCHLOROthiazide 25 MG TABLET PO SCH (09:33)
[2019-01-20] MEDS: METOPROLOL TARTRATE 25 MG TABLET PO SCH ×2 (09:33→22:11)
[2019-01-20] MEDS: SENNOSIDES/DOCUSATE 8.6/50 MG 1 EACH TABLET PO SCH ×2 (09:34→22:12)
[2019-01-20] MEDS: FUROSEMIDE 20 MG TABLET PO SCH (09:34)
[2019-01-20] MEDS: LISINOPRIL 10 MG TABLET PO SCH (09:34)
[2019-01-20] MEDS: CLOPIDOGREL BISULFATE 75 MG TABLET PO SCH (09:34)
[2019-01-20] MEDS: GABAPENTIN 300 MG CAPSULE PO SCH ×3 (09:34→18:04)
[2019-01-20] MEDS: CALCIUM/VIT D 500MG/200 UNIT TABLET PO SCH ×2 (09:34→21:30)
[2019-01-20] MEDS: ASPIRIN 81 MG CHEW TAB PO SCH (09:35)
[2019-01-20] MEDS: PARoxetine HCL 10 MG TABLET PO SCH (09:35)
[2019-01-20] MEDS: CYCLOBENZAPRINE HCL 10 MG TABLET PO SCH ×3 (09:35→18:04)
[2019-01-20] MEDS ORDERED: IBUPROFEN 400 MG TABLET PO PRN (11:24)
[2019-01-20] MEDS: FERROUS SULFATE 325 MG TABLET PO SCH ×2 (13:30→18:04)
[2019-01-20] MEDS: RIVAROXABAN 10 MG TABLET PO SCH (18:04)
[2019-01-20] MEDS: ATORVASTATIN CALCIUM 20 MG TABLET PO SCH (21:30)
[2019-01-21] MEDS: LEVOTHYROXINE SODIUM 50 MCG TABLET PO SCH (06:14)
[2019-01-21] MEDS: PANTOPRAZOLE SODIUM 40 MG TABLET.DR PO SCH (06:14)
[2019-01-21] MEDS: oxyCODONE HCL 5 MG TABLET PO PRN ×3 (06:17→20:10)
[2019-01-21] MEDS: GABAPENTIN 300 MG CAPSULE PO SCH ×3 (09:06→18:31)
[2019-01-21] MEDS: CYCLOBENZAPRINE HCL 10 MG TABLET PO SCH ×3 (09:06→18:31)
[2019-01-21] MEDS: CALCIUM/VIT D 500MG/200 UNIT TABLET PO SCH ×2 (09:07→20:10)
[2019-01-21] MEDS: METOPROLOL TARTRATE 25 MG TABLET PO SCH ×2 (09:07→20:11)
[2019-01-21] MEDS: SENNOSIDES/DOCUSATE 8.6/50 MG 1 EACH TABLET PO SCH ×2 (09:08→20:09)
[2019-01-21] MEDS: ASPIRIN 81 MG CHEW TAB PO SCH (09:08)
[2019-01-21] MEDS: PARoxetine HCL 10 MG TABLET PO SCH (09:09)
[2019-01-21] MEDS: FUROSEMIDE 20 MG TABLET PO SCH (09:09)
[2019-01-21] MEDS: hydroCHLOROthiazide 25 MG TABLET PO SCH (09:09)
[2019-01-21] MEDS: CLOPIDOGREL BISULFATE 75 MG TABLET PO SCH (09:10)
[2019-01-21] MEDS: LISINOPRIL 10 MG TABLET PO SCH (09:11)
[2019-01-21] MEDS: FERROUS SULFATE 325 MG TABLET PO SCH ×2 (11:23→18:31)
--- NOTE | 2019-01-21 12:59 | Inpatient Progress Note ---
Subjective - Required Recertification Statement I anticipate X number of days because-include discharge plan: 3 days - Review of Systems Events since last encounter: Patient seem to be doing well at this time. Patient has been having some episodes of low blood pressure at times. Patient has been slightly dizzy associated with them. Patient denies any chest pain or chest pressure. Patient seemed to be doing well with her physical and occupational therapy. Patient does feel that she is getting stronger and is ambulating more independently. Diabetes mellitus has been stable without any hypoglycemic episodes. Objective - Exam Vitals and I&O: Vital Signs Temp 98.4 F 01/21/19 09:00 Pulse 88 01/21/19 09:00 Resp 20 01/21/19 09:00 BP 127/53 01/21/19 09:00 Pulse Ox 95 01/21/19 09:00 Intake & Output 01/20/19 01/21/19 01/21/19 23:59 11:59 23:59 Intake Total 600 360 Balance 600 360 Intake: Oral 600 360 Other: Voiding Method Toilet Toilet # Voids 3 4 # Bowel Movements 0 0 General: Alert, Oriented to Person, Oriented to Place, Oriented to Time, Cooperative, No acute distress Neck: Supple, No JVD Lungs: Clear to auscultation, Normal air movement, Speaks full Sentences. No: Wheezes, Rales, Rhonchi Cardiovascular: Regular rate, Normal S1, Normal S2 Abdomen: Normal bowel sounds, Soft, No tenderness, No masses. No: Distended Extremities: No clubbing, No cyanosis, Other (trace edema on the left) Skin: Normal, [place], Warm, Dry, Other (Incision site is clean and dry.) Neurological: Normal speech, Strength Equal Bilat, Normal tone, Cranial nerves 3-12 NL. No: Sensation intact (Diabetic peripheral neuropathy) - Results Results: Laboratory Results WBC 9.60 K/ul (4.00-12.00) 01/19/19 05:20 RBC 2.75 M/ul (3.90-5.20) L 01/19/19 05:20 Hgb 8.4 g/dL (11.5-16.0) L 01/19/19 05:20 Hct 25.5 % (34.5-46.5) L 01/19/19 05:20 MCV 93.0 fl (80.0-100.0) 01/19/19 05:20 MCH 30.5 pg (28.0-34.0) 01/19/19 05:20 MCHC 32.9 g/dL (30.0-36.0) 01/19/19 05:20 RDW 14.0 % (11.3-14.3) 01/19/19 05:20 Plt Count 505 K/mm3 (130-400) H 01/19/19 05:20 Neut % (Auto) 68.9 % (39.0-79.0) 01/19/19 05:20 Lymph % (Auto) 20.7 % (16.0-50.0) 01/19/19 05:20 [place] % (Auto) 6.5 % (0.0-11.0) 01/19/19 05:20 Eos % (Auto) 3.5 % (0.0-6.8) 01/19/19 05:20 Baso % (Auto) 0.4 % (0.0-1.5) 01/19/19 05:20 Neut # (Auto) 6.6 # k/uL (1.4-7.7) 01/19/19 05:20 Lymph # (Auto) 2.0 # k/uL (0.6-4.0) 01/19/19 05:20 [place] # (Auto) 0.6 # k/uL (0.0-0.9) 01/19/19 05:20 Eos # (Auto) 0.3 # k/uL (0.0-0.6) 01/19/19 05:20 Baso # (Auto) 0.0 # k/uL (0.0-0.5) 01/19/19 05:20 Sodium 141 mmol/L (137-145) 01/19/19 05:20 Potassium 3.9 mmol/L (3.5-5.1) 01/19/19 05:20 Chloride 100 mmol/L (98-107) 01/19/19 05:20 Carbon Dioxide 33 mmol/L (22-30) H 01/19/19 05:20 BUN 14 mg/dL (7-17) 01/19/19 05:20 Creatinine 1.06 mg/dL (0.52-1.04) H 01/19/19 05:20 Estimated Creat Clear 73 01/19/19 05:20 Est GFR ( Amer) > 60 (60-) 01/19/19 05:20 Est GFR (Non-Af Amer) > 60 (60-) 01/19/19 05:20 Glucose 83 mg/dL (74-106) 01/19/19 05:20 Calcium 7.7 mg/dL (8.4-10.2) L 01/19/19 05:20 Total Bilirubin 0.4 mg/dL (0.2-1.3) 01/19/19 05:20 AST 34 U/L (15-46) 01/19/19 05:20 ALT 24 U/L (13-69) 01/19/19 05:20 Alkaline Phosphatase 87 U/L (38-126) 01/19/19 05:20 Total Protein 5.4 g/dL (6.3-8.2) L 01/19/19 05:20 Albumin 2.9 g/dL (3.5-5.0) L 01/19/19 05:20 Assessment/Plan - Assessment/Plan (1) Hip fracture, left Status: Acute Current Visit: No Qualifiers: Encounter type: initial encounter Fracture type: closed Qualified Code(s): S72.002A - Fracture of unspecified part of neck of left femur, initial encounter for closed fracture (2) Type 2 diabetes mellitus Status: Acute Current Visit: Yes Qualifiers: 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 transplanted heart: [place] heart Associated angina: without angina Qualified Code(s): I25.10 - Atherosclerotic heart disease of [place] coronary artery without angina pectoris Assessment: stable on home medications
[2019-01-21] MEDS: RIVAROXABAN 10 MG TABLET PO SCH (18:31)
[2019-01-21] MEDS: ATORVASTATIN CALCIUM 20 MG TABLET PO SCH (20:10)
[2019-01-22] MEDS: PANTOPRAZOLE SODIUM 40 MG TABLET.DR PO SCH (06:25)
[2019-01-22] MEDS: LEVOTHYROXINE SODIUM 50 MCG TABLET PO SCH (06:25)
[2019-01-22] MEDS: CLOPIDOGREL BISULFATE 75 MG TABLET PO SCH (09:25)
[2019-01-22] MEDS: CALCIUM/VIT D 500MG/200 UNIT TABLET PO SCH ×2 (09:25→20:33)
[2019-01-22] MEDS: GABAPENTIN 300 MG CAPSULE PO SCH ×3 (09:25→18:27)
[2019-01-22] MEDS: SENNOSIDES/DOCUSATE 8.6/50 MG 1 EACH TABLET PO SCH ×2 (09:26→20:33)
[2019-01-22] MEDS: PARoxetine HCL 10 MG TABLET PO SCH (09:27)
[2019-01-22] MEDS: hydroCHLOROthiazide 25 MG TABLET PO SCH (09:50)
[2019-01-22] MEDS: METOPROLOL TARTRATE 25 MG TABLET PO SCH ×2 (09:50→20:31)
[2019-01-22] MEDS: LISINOPRIL 10 MG TABLET PO SCH (09:51)
[2019-01-22] MEDS: FERROUS SULFATE 325 MG TABLET PO SCH ×2 (12:29→18:53)
[2019-01-22] MEDS ORDERED: POLYETHYLENE GLYCOL 3350 17 GM POWD.PACK PO ONE (12:57)
[2019-01-22] MEDS: RIVAROXABAN 10 MG TABLET PO SCH (18:27)
[2019-01-22] MEDS: oxyCODONE HCL 5 MG TABLET PO PRN (19:34)
[2019-01-22] MEDS: ATORVASTATIN CALCIUM 20 MG TABLET PO SCH (20:30)
[2019-01-23] MEDS: PANTOPRAZOLE SODIUM 40 MG TABLET.DR PO SCH (06:31)
[2019-01-23] MEDS: LEVOTHYROXINE SODIUM 50 MCG TABLET PO SCH (06:31)
[2019-01-23] MEDS: CALCIUM/VIT D 500MG/200 UNIT TABLET PO SCH ×2 (08:42→20:33)
[2019-01-23] MEDS: oxyCODONE HCL 5 MG TABLET PO PRN ×2 (08:42→20:41)
[2019-01-23] MEDS: hydroCHLOROthiazide 25 MG TABLET PO SCH (08:42)
[2019-01-23] MEDS: GABAPENTIN 300 MG CAPSULE PO SCH ×3 (08:42→18:20)
[2019-01-23] MEDS: CLOPIDOGREL BISULFATE 75 MG TABLET PO SCH (08:42)
[2019-01-23] MEDS: PARoxetine HCL 10 MG TABLET PO SCH (08:43)
[2019-01-23] MEDS: SENNOSIDES/DOCUSATE 8.6/50 MG 1 EACH TABLET PO SCH ×2 (08:44→20:33)
[2019-01-23] MEDS: FERROUS SULFATE 325 MG TABLET PO SCH ×2 (11:34→18:20)
[2019-01-23] MEDS: LISINOPRIL 10 MG TABLET PO SCH (11:35)
[2019-01-23] MEDS: METOPROLOL TARTRATE 25 MG TABLET PO SCH ×2 (11:40→20:33)
[2019-01-23] MEDS: RIVAROXABAN 10 MG TABLET PO SCH (18:20)
[2019-01-23] MEDS: ATORVASTATIN CALCIUM 20 MG TABLET PO SCH (20:32)
[2019-01-24] MEDS: LEVOTHYROXINE SODIUM 50 MCG TABLET PO SCH (06:32)
[2019-01-24] MEDS: PANTOPRAZOLE SODIUM 40 MG TABLET.DR PO SCH (06:32)
[2019-01-24] MEDS: GABAPENTIN 300 MG CAPSULE PO SCH ×3 (09:11→18:06)
[2019-01-24] MEDS: PARoxetine HCL 10 MG TABLET PO SCH (09:11)
[2019-01-24] MEDS: CLOPIDOGREL BISULFATE 75 MG TABLET PO SCH (09:12)
[2019-01-24] MEDS: hydroCHLOROthiazide 25 MG TABLET PO SCH (09:12)
[2019-01-24] MEDS: SENNOSIDES/DOCUSATE 8.6/50 MG 1 EACH TABLET PO SCH ×2 (09:12→21:00)
[2019-01-24] MEDS: CALCIUM/VIT D 500MG/200 UNIT TABLET PO SCH ×2 (09:12→21:00)
[2019-01-24] MEDS: LISINOPRIL 10 MG TABLET PO SCH (09:12)
[2019-01-24] MEDS: METOPROLOL TARTRATE 25 MG TABLET PO SCH ×2 (09:13→21:00)
[2019-01-24] MEDS: FERROUS SULFATE 325 MG TABLET PO SCH ×2 (11:36→18:06)
[2019-01-24] MEDS: RIVAROXABAN 10 MG TABLET PO SCH (18:06)
[2019-01-24] MEDS: oxyCODONE HCL 5 MG TABLET PO PRN (18:34)
[2019-01-24] MEDS: ATORVASTATIN CALCIUM 20 MG TABLET PO SCH (21:00)
[2019-01-25] MEDS: LEVOTHYROXINE SODIUM 50 MCG TABLET PO SCH (06:12)
[2019-01-25] MEDS: PANTOPRAZOLE SODIUM 40 MG TABLET.DR PO SCH (06:12)
--- NOTE | 2019-01-25 08:11 | Discharge Summary ---
Discharge Summary - Discharge Sumary Admission Date: 01/18/19 (SNF) Discharge Date: 01/25/19 (Home) Discharge To: Home History of Present Illness: This is a 63 year old female with type I diabetes (last A1C 8.1 in October of this year), who is admitted from [facility] after being admitted there for a left hip fracture incurred in a ground leval fall at home, ( s/p replacement with injury on 01/09/19, and repair on 01/10/19. Her postoperative course was complicated by concerns for a CVA (MRI and carotids were negative), postoperative anemia (hemoglobin wa 8.3 yesterday), and an elevated troponin (up to .94, then down to .78). She had a cardiac catheterization performed on her hospitalization, which showed severe three vessel disease, but no intervention was undertaken. CT surgery was consulted, but it does not appear that she had any revascularization procedures. Condition at Discharge: Stable Home Medications: Ambulatory Orders Medication Instructions Recorded Gabapentin 600 mg PO TID 04/22/13 Glucagon,Human Recombinant 1 mg IM DAILY 04/22/13 [Glucagon] Levothyroxine Sodium 75 mcg PO DAILY 04/22/13 Atorvastatin Calcium [Lipitor] 80 mg PO HS #30 tablet 01/25/19 Calcium Carb 500/Vit D 200 1 each PO BID #60 tablet 01/25/19 [CALTRATE WITH VIT D] Ergocalciferol (Vitamin D2) 50,000 unit PO Q7DAYS #4 capsule 01/25/19 [Vitamin D-2] Ferrous Sulfate [Feosol] 325 mg PO [id number] tablet 01/25/19 Metoprolol Tartrate [Lopressor] 25 mg PO BID #60 tablet 01/25/19 Quinapril HCl 10 mg PO DAILY #90 tablet 01/25/19 Rivaroxaban [Xarelto] 10 mg PO 1800 #30 tablet 01/25/19 Tramadol HCl [Ultram] 50 mg PO Q6 PRN #30 tablet 01/25/19 Furosemide 20 mg PO DAILY #30 tablet 01/29/19 Potassium Chloride [Klor-Con M20] 20 meq PO DAILY #30 tab.er.prt 01/29/19 Consultations this Visit: None Procedures this Visit: None Allergies/Adverse Reactions: Allergies Allergy/AdvReac Type Severity Reaction Status Date / Time No Known Allergies Allergy Verified 01/26/19 11:11 Discharge Summary: Upon admission patient was started on physical and occupational therapy. Patient did well with this and progressed to the point that she was ambulating with minimum assistance of a cane or walker. It was felt that the time to discharge the patient could be discharged safely home and continued with outpatient physical therapy. Patient diabetes mellitus remain stable during her hospital stay without any hyper hypoglycemic episodes. Patient did have some constipation issues but this resolved.Patient coronary artery disease and hypertension remain stable on her home medications.
[2019-01-25] MEDS: GABAPENTIN 300 MG CAPSULE PO SCH (09:00)
[2019-01-25] MEDS ORDERED: ERGOCALCIFEROL (VITAMIN D2) 50,000 UNIT CAPSULE PO SCH (09:00)
[2019-01-25] MEDS: METOPROLOL TARTRATE 25 MG TABLET PO SCH (09:00)
[2019-01-25] MEDS: SENNOSIDES/DOCUSATE 8.6/50 MG 1 EACH TABLET PO SCH (09:01)
[2019-01-25] MEDS: CLOPIDOGREL BISULFATE 75 MG TABLET PO SCH (09:01)
[2019-01-25] MEDS: LISINOPRIL 10 MG TABLET PO SCH (09:01)
[2019-01-25] MEDS: hydroCHLOROthiazide 25 MG TABLET PO SCH (09:01)
[2019-01-25] MEDS: PARoxetine HCL 10 MG TABLET PO SCH (09:01)
[2019-01-25] MEDS: CALCIUM/VIT D 500MG/200 UNIT TABLET PO SCH (09:01)
[2019-01-25 09:21] VITALS: BP 134/63
== END 2019-01-25 10:15 | disposition home or self-care (01) | DRG 560 ==
LOC: SOUTH 15:25
PROVIDERS: ADMIT Family Medicine; ATTEND Family Medicine
DX: S72.002D Fracture of unspecified part of neck of left femur, subsequent encounter for closed fracture with routine healing (principal); I13.0 Hypertensive heart and chronic kidney disease with heart failure and stage 1 through stage 4 chronic kidney disease, or unspecified chronic kidney disease; I25.10 Atherosclerotic heart disease of native coronary artery without angina pectoris; E78.5 Hyperlipidemia, unspecified; I27.20 Pulmonary hypertension, unspecified; E03.9 Hypothyroidism, unspecified; D64.9 Anemia, unspecified; E10.42 Type 1 diabetes mellitus with diabetic polyneuropathy; K21.9 Gastro-esophageal reflux disease without esophagitis; I50.9 Heart failure, unspecified; N18.3 Chronic kidney disease, stage 3 (moderate); E10.22 Type 1 diabetes mellitus with diabetic chronic kidney disease; K59.00 Constipation, unspecified; Z79.899 Other long term (current) drug therapy; Z96.642 Presence of left artificial hip joint; Z79.890 Hormone replacement therapy; Z79.4 Long term (current) use of insulin; W18.30XD Fall on same level, unspecified, subsequent encounter
CPT/HCPCS: 80053; 85025; 99283

== ENCOUNTER 2019-01-26 10:52 | Inpatient (IN) | payer MEDICARE, OTHER ==
--- NOTE | 2019-01-26 11:19 | ED Physician Documentation ---
Dyspnea - HISTORIAN Historian: patient - HPI Stated Complaint: SOA Chief Complaint: Dyspnea Additional Information: Patient presents to ED with sudden onset of shortness of breath while ambulating outside today. Patient had a left total hip due to fracture on 01/09/19. She was discharged from rehab 2 days ago. Patient reports she was supposed to be on Xarelto but [facility] pharmacy would not fill it because there was an interaction with Primidone. Patient has been off of Xarelto for 2 days. Patient denies chest pain, syncope, nausea or vomiting. Onset: hours (1) Duration: continues in ED Initiating Event: other (out of Xarelto) Severity: moderate Exacerbated By: exertion Associated Symptoms: denies: fever, chest pain, chest discomfort, leg pain, calf pain, dizziness - ROS CONST: no problems EYES/ENT: none GI/: denies: vomiting, nausea NEURO/PSYCH: denies: headache MS/SKIN/LYMPH: none - PAST HX Lung Disease: none PE Risk Factors: hypertension Surgeries/Procedures: other (left total hip on 01/09/19) Other History: diabetes Type 2 Allergies/Adverse Reactions: Allergies Allergy/AdvReac Type Severity Reaction Status Date / Time No Known Allergies Allergy Verified 01/26/19 11:11 Home Medications: Ambulatory Orders Medication Instructions Recorded Gabapentin 600 mg PO TID 04/22/13 Glucagon,Human Recombinant 1 mg IM DAILY 04/22/13 [Glucagon] Levothyroxine Sodium 75 mcg PO DAILY 04/22/13 Atorvastatin Calcium [Lipitor] 80 mg PO HS #30 tablet 01/25/19 Calcium Carb 500/Vit D 200 1 each PO BID #60 tablet 01/25/19 [CALTRATE WITH VIT D] Ergocalciferol (Vitamin D2) 50,000 unit PO Q7DAYS #4 capsule 01/25/19 [Vitamin D-2] Ferrous Sulfate [Feosol] 325 mg PO [id number] tablet 01/25/19 Metoprolol Tartrate [Lopressor] 25 mg PO BID #60 tablet 01/25/19 Quinapril HCl 10 mg PO DAILY #90 tablet 01/25/19 Rivaroxaban [Xarelto] 10 mg PO 1800 #30 tablet 01/25/19 Tramadol HCl [Ultram] 50 mg PO Q6 PRN #30 tablet 01/25/19 - SOCIAL HX Smoking History: non-smoker Alcohol Use: none Drug Use: none - FAMILY HX Family History: none - VITAL SIGNS Vital Signs: Vital Signs Temp Pulse Resp BP Pulse Ox 98.4 F 61 19 131/60 88 L 01/26/19 11:07 01/26/19 11:07 01/26/19 11:07 01/26/19 11:07 01/26/19 11:07 - REVIEWED ASSESSMENTS Nursing Assessment Reviewed: Yes Vitals Reviewed: Yes Progress - Progress Progress: [address] Hines for admission. Will admit to Dr. Hines acute inpatient. ED Results Lab/Radiology - Radiology Radiology Impressions: Report Submission Date: Jan 26, 2019 12:41:25 PM CDT Patient Study Name: JESUS BARLOW Date: Jan 26, 2019 12:12:42 PM CDT Modality Type: CT\SR Gender: F Description: CT PE CHEST : 57 Institution: [facility] Physician: ADRIAN NGUYỄN HISTORY: 63-year-old female with shortness of breath, left hip surgery 2 weeks ago COMPARISON: None available. TECHNIQUE: Helical CT images of the chest were performed with 90 ml Omnipaque IV contrast using pulmonary CTA protocol. Sagittal and coronal reformatted images were obtained. IMPRESSION: 1. No evidence of pulmonary embolism. 2. Combination of findings including diffuse interlobular septal thickening, interstitial pulmonary edema, and moderate bilateral pleural effusions, consistent with CHF. 3. Partial consolidation of the bilateral lower lobes and to a lesser degree right middle lobe, likely representing atelectasis. 4. Extensive coronary artery disease. 5. Small pericardial effusion accumulates anteriorly 6. Right middle lobe 6 mm noncalcified pulmonary nodule (image 73, series 3) and 6 mm left lower lobe noncalcified pulmonary nodule (image 98, series 3). Recommend follow-up according to Fleischner Society guidelines. 7. No pneumothorax, cardiomegaly, thoracic aortic aneurysm or dissection. Electronically signed on Jan 26, 2019 12:41:25 PM CDT by: Beni Coates - Orders Orders: ED Orders Category Date Time Status Place IV Lock 1T Care 01/26/19 11:[address] CHEST ANGIOGRAPHY [CT PE CHEST] Stat Exams 01/26/19 Ordered CBC/PLATELET/DIFF Routine Lab 01/26/19 Ordered CMP Routine Lab 01/26/19 Ordered PT-INR Routine Lab 01/26/19 Ordered Dyspnea Physical Exam - EXAM General Appearance: no acute distress, alert EENT: MARLENA Respiratory: no resp. distress, decreased air movement CVS: reg. rate & rhythm Abdomen: non-tender Skin: color nml Extremities: non-tender Neuro/Psych: oriented x3 Discharge Clincal Impression: Acute respiratory failure with hypoxia, Bilateral pleural effusion, Postoperative anemia Acute CHF Qualifiers: Heart failure type: unspecified Qualified Code(s): I50.9 - Heart failure, unspecified Referrals: Francisco Hines MD [Primary Care Provider] - 2 Days Condition: Fair Disposition: ADMITTED INPATIENT Decision to Admit: [id number] Date of Decison to Admit: 01/26/19 Decision Time: 13:41
[2019-01-26 12:15] LABS: eGFR (Non-African) 40
--- NOTE | 2019-01-26 12:42 | Diagnostic Imaging Report ---
ADRIAN NGUYỄN [facility] [address] [address] [place], [place]. [address] Report Submission Date: Jan 26, 2019 12:41:25 PM CDT Patient Study Name: JESUS BARLOW Date: Jan 26, 2019 12:12:42 PM CDT Modality Type: CT\SR Gender: F Description: CT PE CHEST : 57 Institution: [facility] Physician: ADRIAN NGUYỄN HISTORY: 63-year-old female with shortness of breath, left hip surgery 2 weeks ago COMPARISON: None available. TECHNIQUE: Helical CT images of the chest were performed with 90 ml Omnipaque IV contrast using pulmonary CTA protocol. Sagittal and coronal reformatted images were obtained. IMPRESSION: 1. No evidence of pulmonary embolism. 2. Combination of findings including diffuse interlobular septal thickening, interstitial pulmonary edema, and moderate bilateral pleural effusions, consistent with CHF. 3. Partial consolidation of the bilateral lower lobes and to a lesser degree right middle lobe, likely representing atelectasis. 4. Extensive coronary artery disease. 5. Small pericardial effusion accumulates anteriorly 6. Right middle lobe 6 mm noncalcified pulmonary nodule (image 73, series 3) and 6 mm left lower lobe noncalcified pulmonary nodule (image 98, series 3). Recommend follow-up according to Fleischner Society guidelines. 7. No pneumothorax, cardiomegaly, thoracic aortic aneurysm or dissection. Electronically signed on Jan 26, 2019 12:41:25 PM CDT by: Beni COOK
[2019-01-26] MEDS ORDERED: FUROSEMIDE 40 MG/4 ML VIAL IVP ONE (12:46)
[2019-01-26 15:00] VITALS: BMI 30.2
[2019-01-26] MEDS: RIVAROXABAN 10 MG TABLET PO SCH (17:44)
[2019-01-26] MEDS: GABAPENTIN 300 MG CAPSULE PO SCH (17:44)
[2019-01-26] MEDS: FERROUS SULFATE 325 MG TABLET PO SCH (18:37)
[2019-01-26] MEDS: METOPROLOL TARTRATE 25 MG TABLET PO SCH (20:17)
[2019-01-26] MEDS: SODIUM CHLORIDE 0.9 % (FLUSH) 10 ML DISP.SYRIN IV SCH (20:18)
[2019-01-26] MEDS: traMADol HCL 50 MG TABLET PO PRN (20:59)
--- NOTE | 2019-01-27 06:23 | History and Physical Report ---
History of Present Illnes - History of Present Illness Reason for Visit: dyspnea History of Present Illness: Patient is a 63-year-old white female who was recently seen at the [facility] in clinic for a left traumatic hip fracture. Patient subsequently underwent open reduction internal fixation. Her postoperative course was complicated by some neurological changes with concern for a possible CVA. Workup for this did not reveal any pathology. However patient was found to have an elevated troponin. Patient subsequently underwent cardiac catheterization and was found to have multiple vessel disease. During her course of hospitalization was concerned that the patient might have a pulmonary embolization. Workup was negative for this although patient was found to have bilateral pleural effusion's. Patient was also noted to have some pulmonary hypertension. Patient was transferred to [facility] for skilled services. Patient with discharged of the day prior to readmission. Patient states that after she would home she did seem to be doing fairly well however on the day of admission developed some increasing shortness of breath and dyspnea. Patient was subsequently seen in the ED. CT scan was done and will possible pulmonary embolization and this was negative for that. However it was noted that the patient did have some pulmonary congestion and bilateral pleural effusion. It was felt that the patient was having some congestive heart failure was bermeo bsequently admitted to the hospital for further care and treatment. - Past Medical History Cardiac: CAD, HTN, Hyperlipidemia, Pulmonary hypertension Endocrine: Diabetes (type 1), Hypothyroidism - Past Surgical History Past Surgical History: , Total Hip Replacement (Left hip, secondary to truama), Other (carpal tunnel release, left shoulder replacement, right eye laser surgery) - Past Social History Smoke: No Alcohol: None Drugs: None Lives: With Family Domestic Violence: Negative - Health Maintenance Health Maintenance: Cholesterol, Influenza Vaccine, Pneumococcal Vaccine Influenza Vaccine: Current for this Influenza Season Pneumonia Vaccine: Yes Resuscitation Status: Resusciation Status Resuscitation Status Full Code - Unable to Obtain History Unable to Obtain: No Review of Systems - Review of Systems Constitutional: negative: Fever, Chills, Sweats, Weakness Eyes: negative: pain, vision change ENT: negative: Ear Pain, Nose Pain, Nose Discharge, Nose Congestion, Mouth Pain, Mouth Swelling, Throat Pain Respiratory: Shortness of Breath, SOB with Excertion. negative: Cough, Dry, Hemoptysis, Pleuritic Pain, Sputum Cardiovascular: negative: Chest Pain, Palpitations, Orthopnea, Paroxysmal Noc. Dyspnea, [place] Gastrointestinal: negative: Nausea, Vomiting, Abdominal Pain, Diarrhea, Constipation, Melena, Hematochezia Genitourinary: negative: Dysuria, Frequency, Incontinence, Hematuria, Retention Musculoskeletal: Shoulder Pain Skin: negative: Rash Neurological: Weakness. negative: Numbness, Incoordination, Change in Speech, Confusion, Seizures - Medications/Allergies Allergies/Adverse Reactions: Allergies Allergy/AdvReac Type Severity Reaction Status Date / Time No Known Allergies Allergy Verified 01/26/19 11:11 Current Inpatient Medications: Current Inpatient Medications Ergocalciferol (Vitamin D2) 50,000 unit PO Q7DAYS [facility] Ferrous Sulfate (Feosol) 325 mg PO [id number] [facility] Last Admin: 01/26/19 18:37 Dose: 325 mg Fluticasone Propionate (Flonase Nasal [place]) spray IEN DAILY [facility] Furosemide (Lasix) 40 mg IVP 714 [facility] Gabapentin (Neurontin) 600 mg PO TID [facility] Last Admin: 01/26/19 17:44 Dose: 600 mg Levothyroxine Sodium (Synthroid) 75 mcg PO 0700 [facility] Metoprolol Tartrate (Lopressor) 25 mg PO BID [facility] Last Admin: 01/26/19 20:17 Dose: 25 mg Miscellaneous (Chem Sticks) 1 each MC CHEMQID [facility] Last Admin: 01/26/19 20:16 Dose: 1 each Rivaroxaban (Xarelto) 10 mg PO 1800 [facility] Last Admin: 01/26/19 17:44 Dose: 10 mg Sodium Chloride (Normal Saline Flush) 3 ml IV BID [facility] Last Admin: 01/26/19 20:18 Dose: 3 ml Tramadol HCl (Ultram) 50 mg PO Q6 PRN PRN Reason: pain Last Admin: 01/26/19 20:59 Dose: 50 mg Exam - Exam Vital Signs: Vital Signs (72 hours) 01/25/19 01/26/19 01/26/19 09:00 11:07 14:08 Temperature 98.4 F Pulse Rate [ Apical] Pulse Rate [ Left] Pulse Rate [ 61 70 Pulse ox] Respiratory 19 20 Rate Blood Pressure 134/63 Blood Pressure 134/63 [Left Arm] Blood Pressure 131/63 131/60 160/70 [Right Arm] O2 Sat by Pulse 88 L 99 Oximetry 01/26/19 01/26/19 01/26/19 14:16 14:50 18:00 Temperature 97.2 F L 97.2 F L 98.8 F Pulse Rate [ Apical] Pulse Rate [ 63 63 64 Left] Pulse Rate [ Pulse ox] Respiratory 20 20 18 Rate Blood Pressure Blood Pressure 150/76 150/76 149/68 [Left Arm] Blood Pressure 160/70 [Right Arm] O2 Sat by Pulse 96 96 96 Oximetry 01/26/19 01/27/19 01/27/19 22:00 01:57 02:00 Temperature 97.6 F 97.8 F Pulse Rate [ 62 Apical] Pulse Rate [ Left] Pulse Rate [ 76 Pulse ox] Respiratory 20 20 20 Rate Blood Pressure Blood Pressure [Left Arm] Blood Pressure 136/76 130/72 [Right Arm] O2 Sat by Pulse 95 98 Oximetry 01/27/19 01/27/19 05:50 05:52 Temperature 97.6 F Pulse Rate [ 63 Apical] Pulse Rate [ Left] Pulse Rate [ Pulse ox] Respiratory 20 18 Rate Blood Pressure Blood Pressure [Left Arm] Blood Pressure 129/64 [Right Arm] O2 Sat by Pulse 97 Oximetry General: Alert, Oriented to Person, Oriented to Place, Oriented to Time, Cooperative, Mild distress HEENT: Atraumatic, PERRLA, EOMI, Mouth Mucous membr. moist/[place], Nose Mucous membr. moist/[place], Dentition Normal Neck: Normal Range of Motion Carotids: WNL Thyroid: WNL Lungs: Normal air movement, Speaks full Sentences, Respiratory Distress (mild), Rales (bases) Cardiovascular: Regular rate, Normal S1, Normal S2, No murmurs. No: Gallops Abdomen: Normal bowel sounds, Soft, No tenderness, No hepatospenomegaly, No masses Integumentary: Normal, [place], Warm, Dry Extremities: No clubbing, No cyanosis, No edema, Normal pulses, No tenderness/swelling Neurological: Normal gait, Normal speech, Strength Equal Bilat, Normal tone, Sensation intact, Cranial nerves 3-12 NL, Reflexes 2+ Psych/Mental Status: Mental status NL, Mood NL, Appropriate Affect, Intact Judgment - Laboratory Results Laboratory Results: Laboratory Results 01/26/19 01/26/19 01/26/19 11:50 11:50 11:50 WBC 11.30 RBC 2.61 L Hgb 7.9 L Hct 24.0 L MCV 92.0 MCH 30.4 MCHC 33.0 RDW 15.0 H Plt Count 707 H Neut % (Auto) 80.0 H Lymph % (Auto) 15.0 L [place] % (Auto) 5.0 PT 12.5 H INR 1.20 H Sodium 136 L Potassium 3.9 Chloride 100 Carbon Dioxide 26 BUN 39 H Creatinine 1.42 H Estimated Creat Clear 50 Est GFR ( Amer) > 60 Est GFR (Non-Af Amer) 40 L Glucose 187 H Calcium 8.3 L Total Bilirubin 0.9 AST 83 H ALT 45 Alkaline Phosphatase 193 H Troponin I NT-Pro-B Natriuret Pep Total Protein 6.4 Albumin 3.4 L 01/26/19 01/26/19 11:50 11:50 WBC RBC Hgb Hct MCV MCH MCHC RDW Plt Count Neut % (Auto) Lymph % (Auto) [place] % (Auto) PT INR Sodium Potassium Chloride Carbon Dioxide BUN Creatinine Estimated Creat Clear Est GFR ( Amer) Est GFR (Non-Af Amer) Glucose Calcium Total Bilirubin AST ALT Alkaline Phosphatase Troponin I 0.096 H NT-Pro-B Natriuret Pep 63810.0 H Total Protein Albumin Assessment/Plan - Assessment/Plan (1) Acute CHF Status: Acute Current Visit: Yes Qualifiers: Heart failure type: unspecified Qualified Code(s): I50.9 - Heart failure, unspecified Assessment: Will start IV lasix. Will monitor BUN and Creatinine. Supplemental oxygen to keep O2 sat > 92% Troponin is mildly elevated, EKG is OK, will get serial troponins done. Will monitor weight daily. (2) Acute respiratory failure with hypoxia Status: Acute Current Visit: Yes Assessment: Probably related to CHF and pleural effusions (3) Bilateral pleural effusion Status: Acute Current Visit: Yes Assessment: Related to CHF (4) Postoperative anemia Status: Acute Current Visit: Yes Assessment: Hgb is down some, will recheck in AM and will get stool for occult blood and monitor (5) CAD (coronary artery disease) Status: Acute Current Visit: No Qualifiers: Coronary Disease-Associated Artery/Lesion type: [place] artery [place] vs. transplanted heart: [place] heart Associated angina: without angina Qualified Code(s): I25.10 - Atherosclerotic heart disease of [place] coronary artery without angina pectoris Assessment: appears stable. Torponin is elevated some but I suspect it is due to CKD (6) Essential hypertension Status: Acute Current Visit: No Assessment: continue home meds (7) GERD without esophagitis Status: Acute Current Visit: No Assessment: continue home meds (8) CKD (chronic kidney disease) stage 3, GFR 30-59 ml/min Status: Acute Current Visit: Yes Assessment: Will monitor renal function (9) Type I diabetes mellitus Status: Acute Current Visit: No Qualifiers: Diabetes mellitus complication status: with kidney complications Diabetes mellitus complication detail: with chronic kidney disease Chronic kidney disease stage: stage 3 (moderate) Qualified Code(s): E10.22 - Type 1 diabetes mellitus with diabetic chronic kidney disease; N18.3 - Chronic kidney disease, stage 3 (moderate) Assessment: Patient is on insulin pump and manages her insulin dose. Will monitor blood sugars VTE Assessment - RISK FACTOR SCORE VTE RISK FACTOR SCORES: AGE OVER 60 YEARS, ACUTE RESPIRATORY FAILURE/SEVERE COPD - RISK VTE MODERATE RISK: SCORE OF 2 (RISK PROXIMAL DVT 2-4%) PROPHYAXIS NEEDED (on xarelto)
[2019-01-27] MEDS: FUROSEMIDE 40 MG/4 ML VIAL IVP SCH ×2 (06:35→14:29)
[2019-01-27] MEDS: LEVOTHYROXINE SODIUM 50 MCG TABLET PO SCH (06:35)
[2019-01-27 07:40] LABS: SEGMENTED NEUTROPHILS % 70 % (39-79)
[2019-01-27 07:41] LABS: eGFR (Non-African) 42
[2019-01-27] MEDS: GABAPENTIN 300 MG CAPSULE PO SCH ×3 (09:24→18:34)
[2019-01-27] MEDS: METOPROLOL TARTRATE 25 MG TABLET PO SCH ×2 (09:25→21:05)
[2019-01-27] MEDS: SODIUM CHLORIDE 0.9 % (FLUSH) 10 ML DISP.SYRIN IV SCH ×2 (09:27→21:05)
[2019-01-27] MEDS: FERROUS SULFATE 325 MG TABLET PO SCH ×2 (11:20→18:34)
[2019-01-27] MEDS: POTASSIUM CHLORIDE 20 MEQ TABLET.ER PO SCH (12:54)
[2019-01-27] MEDS: RIVAROXABAN 10 MG TABLET PO SCH (18:34)
[2019-01-27] MEDS: traMADol HCL 50 MG TABLET PO PRN (21:05)
[2019-01-27] MEDS: FLUTICASONE PROPIONATE 120 SPRAY/16 GR BOTTLE IEN SCH (21:06)
[2019-01-28] MEDS: LEVOTHYROXINE SODIUM 50 MCG TABLET PO SCH (05:59)
[2019-01-28] MEDS: FUROSEMIDE 40 MG/4 ML VIAL IVP SCH ×3 (06:45→14:01)
[2019-01-28 07:36] LABS: BASOPHILS % 0.3 % (0.0-1.5); NEUTROPHILS # 7.4 # k/uL (1.4-7.7)
[2019-01-28] MEDS: POTASSIUM CHLORIDE 20 MEQ TABLET.ER PO SCH (08:24)
[2019-01-28] MEDS: GABAPENTIN 300 MG CAPSULE PO SCH ×3 (08:25→17:41)
[2019-01-28] MEDS: METOPROLOL TARTRATE 25 MG TABLET PO SCH ×2 (08:31→20:20)
[2019-01-28] MEDS: FLUTICASONE PROPIONATE 120 SPRAY/16 GR BOTTLE IEN SCH (09:00)
[2019-01-28] MEDS: SODIUM CHLORIDE 0.9 % (FLUSH) 10 ML DISP.SYRIN IV SCH ×2 (10:50→20:20)
[2019-01-28] MEDS: FERROUS SULFATE 325 MG TABLET PO SCH ×2 (11:26→17:42)
[2019-01-28] MEDS: traMADol HCL 50 MG TABLET PO PRN ×2 (11:29→20:22)
[2019-01-28] MEDS: RIVAROXABAN 10 MG TABLET PO SCH (17:42)
[2019-01-29] MEDS ORDERED: FUROSEMIDE 40 MG TABLET PO ONE (06:34)
[2019-01-29] MEDS: LEVOTHYROXINE SODIUM 50 MCG TABLET PO SCH (06:37)
[2019-01-29] MEDS: FUROSEMIDE 40 MG/4 ML VIAL IVP SCH (06:37)
[2019-01-29] MEDS ORDERED: FUROSEMIDE 40 MG TABLET PO SCH (07:00)
--- NOTE | 2019-01-29 07:50 | Diagnostic Imaging Report ---
LAYLA URBINA [facility] [id number] [facility] [address] [place] [address]. [id number] Report Submission Date: Jan 29, 2019 7:47:17 AM CDT Patient Study Name: JESUS BARLOW Date: Jan 29, 2019 7:05:56 AM CDT Modality Type: DX Gender: F Description: CHEST 2VIEW : 57 Institution: [facility] Physician: LAYLA URBINA PA and lateral chest History: Congestive failure PA and lateral chest dated January 29, 2019 is compared with the software sales executive radiograph from a chest CT performed January 26, 2019. Increased interstitial markings are present in a perihilar distribution and at both lung bases, consistent with mild congestive failure. Small bilateral pleural effusions are present. Impression: Prominent interstitial markings in a perihilar distribution and at both lung bases, consistent with mild pulmonary edema/pulmonary venous congestion. Small bilateral pleural effusions. Electronically signed on Jan 29, 2019 7:47:17 AM CDT by: Yoana COOK
[2019-01-29 08:53] VITALS: BP 127/72
[2019-01-29] MEDS: FLUTICASONE PROPIONATE 120 SPRAY/16 GR BOTTLE IEN SCH (09:19)
[2019-01-29] MEDS: GABAPENTIN 300 MG CAPSULE PO SCH (09:20)
[2019-01-29] MEDS: METOPROLOL TARTRATE 25 MG TABLET PO SCH (09:20)
[2019-01-29] MEDS: POTASSIUM CHLORIDE 20 MEQ TABLET.ER PO SCH (09:20)
[2019-01-29] MEDS: SODIUM CHLORIDE 0.9 % (FLUSH) 10 ML DISP.SYRIN IV SCH (09:27)
[2019-01-29 09:35] LABS: eGFR (Non-African) 37
[2019-02-02] MEDS ORDERED: ERGOCALCIFEROL (VITAMIN D2) 50,000 UNIT CAPSULE PO SCH (09:00)
--- NOTE | 2019-02-13 13:34 | Discharge Summary ---
Discharge Summary - Discharge [facility] Admission Date: 01/26/19 (Acute) Discharge Date: 01/29/19 (Home) Discharge To: Home History of Present Illness: Patient is a 63-year-old white female who was recently seen at the [facility] in clinic for a left traumatic hip fracture. Patient subsequently underwent open reduction internal fixation. Her postoperative course was complicated by some neurological changes with concern for a possible CVA. Workup for this did not reveal any pathology. However patient was found to have an elevated troponin. Patient subsequently underwent cardiac catheterization and was found to have multiple vessel disease. During her course of hospitalization was concerned that the patient might have a pulmonary embolization. Workup was negative for this although patient was found to have bilateral pleural effusion's. Patient was also noted to have some pulmonary hypertension. Patient was transferred [facility] for skilled services. Patient with discharged of the day prior to readmission. Patient states that after she would home she did seem to be doing fairly well however on the day of admission developed some increasing shortness of breath and dyspnea. Patient was subsequently seen in the ED. CT scan was done and will possible pulmonary embolization and this was negative for that. However it was noted that the patient did have some pulmonary congestion and bilateral pleural effusion. It was felt that the patient was having some congestive heart failure was subsequently admitted to the hospital for further care and treatment. Home Medications: Ambulatory Orders Medication Instructions Recorded Gabapentin 600 mg PO TID 04/22/13 Glucagon,Human Recombinant 1 mg IM DAILY 04/22/13 [Glucagon] Levothyroxine Sodium 75 mcg PO DAILY 04/22/13 Atorvastatin Calcium [Lipitor] 80 mg PO HS #30 tablet 01/25/19 Calcium Carb 500/Vit D 200 1 each PO BID #60 tablet 01/25/19 [CALTRATE WITH VIT D] Ergocalciferol (Vitamin D2) 50,000 unit PO Q7DAYS #4 capsule 01/25/19 [Vitamin D-2] Ferrous Sulfate [Feosol] 325 mg PO [id number] tablet 01/25/19 Metoprolol Tartrate [Lopressor] 25 mg PO BID #60 tablet 01/25/19 Quinapril HCl 10 mg PO DAILY #90 tablet 01/25/19 Rivaroxaban [Xarelto] 10 mg PO 1800 #30 tablet 01/25/19 Tramadol HCl [Ultram] 50 mg PO Q6 PRN #30 tablet 01/25/19 Furosemide 20 mg PO DAILY #30 tablet 01/29/19 Potassium Chloride [Klor-Con M20] 20 meq PO DAILY #30 tab.er.prt 01/29/19 Consultations this Visit: None Procedures this Visit: None Allergies/Adverse Reactions: Allergies Allergy/AdvReac Type Severity Reaction Status Date / Time No Known Allergies Allergy Verified 01/26/19 11:11 Discharge Summary: On admission patient was started on IV Lasix. Patient did have good diuresis. Patient did have some difficulties with hypokalemia however this was improved at the time to discharge. Chest x-ray did show some pulmonary edema and pleural effusion's. Patient was noted have pleural effusion before she left the [facility] at the her hip fracture. During her hospital stay patient was noted to have elevated troponin that this was felt to be stable from her previous elevations. I did confirm with research associate quality control qc at the [place] and he agreed this is probably related to her chronic kidney disease and congestive heart failure and did not represent any new acute ischemic problems. Patient EKG remain stable without any acute ischemic changes. Patient was placed on oxygen therapy to help maintain her SaO2 on admission. At the time to discharge patient was able to maintain her SaO2 without oxygen therapy. It was felt that the patient was stable enough that she could be discharged home and followed up on an outpatient basis. Patient with discharged in stable condition. - Final Diagnosis (1) Acute CHF Problems: improved (3) Postoperative anemia Problems: stable, discharge hemoglobin 8.9 (4) CAD (coronary artery disease) Problems: stable without chest panior pressure, troponins remained stable (5) Essential hypertension Problems: stable (6) GERD without esophagitis Problems: stable (7) CKD (chronic kidney disease) stage 3, GFR 30-59 ml/min Problems: stable, Patient creatinine did increase slightly with diuresis. (8) Type I diabetes mellitus Problems: stable, Patient monitored and treated her diabetes by herself on she was in the hospital.
--- NOTE | 2019-02-13 13:35 | Inpatient Progress Note ---
Subjective - Required Recertification Statement I anticipate X number of days because-include discharge plan: 2 days - Review of Systems Events since last encounter: Patient stated she seemed to be doing some better. Patient diuresed approximately 1500 ML's m than what she took in since admission. Swelling in her feet has improved. Patient denies any cough. Patient denies any orthopnea symptoms at this time. Diabetes mellitus has been stable. Pulmonary: Dyspnea. Denies: Pleuritic Chest Pain Cardiovascular: Denies: Chest Pain Gastrointestinal: Denies: Nausea, Vomiting, Abdominal Pain Genitourinary: Frequency. Denies: Dysuria Objective - Exam Vitals and I&O: Vital Signs Temp 97.6 F 01/29/19 09:10 Pulse 70 01/29/19 09:10 Resp 18 01/29/19 09:10 BP 127/72 01/29/19 09:10 Pulse Ox 92 01/29/19 09:10 General: Alert, Oriented to Person, Oriented to Place, Oriented to Time, Cooperative HEENT: Atraumatic, PERRLA, EOMI, Mouth Mucous membr. moist/[place], Nose Mucous membr. moist/[place] Neck: Supple, No JVD, No thyromegaly Lungs: Normal air movement, Speaks full Sentences, Rales (in bases. decrease BS in left base) Cardiovascular: Regular rate, Normal S1, Normal S2, No murmurs Abdomen: Normal bowel sounds, Soft, No tenderness, No hepatospenomegaly, No masses Extremities: No clubbing, No cyanosis, No edema, Normal pulses, No tenderness/swelling Skin: Normal, [place], Warm, Dry Neurological: Normal gait, Normal speech, Strength Equal Bilat, Normal tone, Sensation intact, Cranial nerves 3-12 NL, Reflexes 2+ Psych/Mental Status: Mental status NL, Mood NL, Appropriate Affect, Intact Judgment - Results Results: Laboratory Results WBC 9.50 K/ul (4.00-12.00) 01/28/19 07:10 RBC 2.89 M/ul (3.90-5.20) L 01/28/19 07:10 Hgb 8.9 g/dL (11.5-16.0) L 01/28/19 07:10 Hct 26.8 % (34.5-46.5) L 01/28/19 07:10 MCV 92.0 fl (80.0-100.0) 01/28/19 07:10 MCH 30.8 pg (28.0-34.0) 01/28/19 07:10 MCHC 33.3 g/dL (30.0-36.0) 01/28/19 07:10 RDW 14.9 % (11.3-14.3) H 01/28/19 07:10 Plt Count 720 K/mm3 (130-400) H 01/28/19 07:10 Neut % (Auto) 78.0 % (39.0-79.0) 01/28/19 07:10 Lymph % (Auto) 11.9 % (16.0-50.0) L 01/28/19 07:10 [place] % (Auto) 8.0 % (0.0-11.0) 01/28/19 07:10 Eos % (Auto) 1.8 % (0.0-6.8) 01/28/19 07:10 Baso % (Auto) 0.3 % (0.0-1.5) 01/28/19 07:10 Neut # (Auto) 7.4 # k/uL (1.4-7.7) 01/28/19 07:10 Lymph # (Auto) 1.1 # k/uL (0.6-4.0) 01/28/19 07:10 [place] # (Auto) 0.8 # k/uL (0.0-0.9) 01/28/19 07:10 Eos # (Auto) 0.2 # k/uL (0.0-0.6) 01/28/19 07:10 Baso # (Auto) 0.0 # k/uL (0.0-0.5) 01/28/19 07:10 Seg Neutrophils % 70 % (39-79) 01/27/19 07:05 Lymphocytes % 20 % (16-50) 01/27/19 07:05 Monocytes % 10 % (0-11) 01/27/19 07:05 PT 12.5 Seconds (8.8-11.9) H 01/26/19 11:50 INR 1.20 (0.80-1.10) H 01/26/19 11:50 Sodium 138 mmol/L (137-145) 01/29/19 08:30 Potassium 3.2 mmol/L (3.5-5.1) L 01/29/19 08:30 Chloride 96 mmol/L (98-107) L 01/29/19 08:30 Carbon Dioxide 27 mmol/L (22-30) 01/29/19 08:30 BUN 40 mg/dL (7-17) H 01/29/19 08:30 Creatinine 1.50 mg/dL (0.52-1.04) H 01/29/19 08:30 Estimated Creat Clear 49 01/29/19 08:30 Est GFR ( Amer) > 60 (60-) 01/29/19 08:30 Est GFR (Non-Af Amer) 37 (60-) L 01/29/19 08:30 Glucose 271 mg/dL (74-106) H 01/29/19 08:30 Calcium 7.7 mg/dL (8.4-10.2) L 01/29/19 08:30 Total Bilirubin 1.1 mg/dL (0.2-1.3) 01/28/19 07:10 AST 75 U/L (15-46) H 01/28/19 07:10 ALT 51 U/L (13-69) 01/28/19 07:10 Alkaline Phosphatase 233 U/L (38-126) H 01/28/19 07:10 Troponin I 0.112 ng/mL (0.012-0.034) H 01/27/19 07:05 NT-Pro-B Natriuret Pep 67254.0 pg/mL (11.1-125.0) H 01/26/19 11:50 Total Protein 7.2 g/dL (6.3-8.2) 01/28/19 07:10 Albumin 4.0 g/dL (3.5-5.0) 01/28/19 07:10 Stool Guaiac Test Negative (NEGATIVE) 01/28/19 18:17 Assessment/Plan - Assessment/Plan (1) Acute CHF Status: Acute Qualifiers: Heart failure type: unspecified Qualified Code(s): I50.9 - Heart failure, unspecified Assessment: appears to be improving (2) Bilateral pleural effusion Status: Acute (3) Postoperative anemia Status: Acute (4) CAD (coronary artery disease) Status: Chronic Qualifiers: Coronary Disease-Associated Artery/Lesion type: [place] artery [place] vs. transplanted heart: [place] heart Associated angina: without angina Qualified Code(s): I25.10 - Atherosclerotic heart disease of [place] coronary artery without angina pectoris Assessment: stable (5) Essential hypertension Status: Acute (6) GERD without esophagitis Status: Chronic Assessment: stable (7) CKD (chronic kidney disease) stage 3, GFR 30-59 ml/min Status: Chronic Assessment: stable (8) Type I diabetes mellitus Status: Chronic Qualifiers: Diabetes mellitus complication status: with kidney complications Diabetes mellitus complication detail: with chronic kidney disease Chronic kidney disease stage: stage 3 (moderate) Qualified Code(s): E10.22 - Type 1 diabetes mellitus with diabetic chronic kidney disease; N18.3 - Chronic kidney disease, stage 3 (moderate)
--- NOTE | 2019-02-13 13:36 | Inpatient Progress Note ---
Subjective - Required Recertification Statement I anticipate X number of days because-include discharge plan: 1 day - Review of Systems Subjective: Patient stated her breathing does seem to continue to slowly improve. Patient is still required supplemental oxygen. Patient states she has been able to ambulate a little bit more without getting so short of breath. Patient denies any chest pain or chest pressure. Diabetes mellitus has been stable. General: Denies: Chills Pulmonary: Dyspnea. Denies: Cough, Pleuritic Chest Pain Cardiovascular: Denies: Chest Pain Objective - Exam Vitals and I&O: Vital Signs Temp 97.6 F 01/29/19 09:10 Pulse 70 01/29/19 09:10 Resp 18 01/29/19 09:10 BP 127/72 01/29/19 09:10 Pulse Ox 92 01/29/19 09:10 General: Alert, Oriented to Person, Oriented to Place, Oriented to Time Neck: Supple, No JVD Lungs: Normal air movement (breath sounds are improving), Speaks full Sentences, Rales Cardiovascular: Regular rate, Normal S1, Normal S2, No murmurs Neurological: Normal gait, Normal speech Psych/Mental Status: Mental status NL, Mood NL, Appropriate Affect, Intact Judgment - Results Results: Laboratory Results WBC 9.50 K/ul (4.00-12.00) 01/28/19 07:10 RBC 2.89 M/ul (3.90-5.20) L 01/28/19 07:10 Hgb 8.9 g/dL (11.5-16.0) L 01/28/19 07:10 Hct 26.8 % (34.5-46.5) L 01/28/19 07:10 MCV 92.0 fl (80.0-100.0) 01/28/19 07:10 MCH 30.8 pg (28.0-34.0) 01/28/19 07:10 MCHC 33.3 g/dL (30.0-36.0) 01/28/19 07:10 RDW 14.9 % (11.3-14.3) H 01/28/19 07:10 Plt Count 720 K/mm3 (130-400) H 01/28/19 07:10 Neut % (Auto) 78.0 % (39.0-79.0) 01/28/19 07:10 Lymph % (Auto) 11.9 % (16.0-50.0) L 01/28/19 07:10 [place] % (Auto) 8.0 % (0.0-11.0) 01/28/19 07:10 Eos % (Auto) 1.8 % (0.0-6.8) 01/28/19 07:10 Baso % (Auto) 0.3 % (0.0-1.5) 01/28/19 07:10 Neut # (Auto) 7.4 # k/uL (1.4-7.7) 01/28/19 07:10 Lymph # (Auto) 1.1 # k/uL (0.6-4.0) 01/28/19 07:10 [place] # (Auto) 0.8 # k/uL (0.0-0.9) 01/28/19 07:10 Eos # (Auto) 0.2 # k/uL (0.0-0.6) 01/28/19 07:10 Baso # (Auto) 0.0 # k/uL (0.0-0.5) 01/28/19 07:10 Seg Neutrophils % 70 % (39-79) 01/27/19 07:05 Lymphocytes % 20 % (16-50) 01/27/19 07:05 Monocytes % 10 % (0-11) 01/27/19 07:05 PT 12.5 Seconds (8.8-11.9) H 01/26/19 11:50 INR 1.20 (0.80-1.10) H 01/26/19 11:50 Sodium 138 mmol/L (137-145) 01/29/19 08:30 Potassium 3.2 mmol/L (3.5-5.1) L 01/29/19 08:30 Chloride 96 mmol/L (98-107) L 01/29/19 08:30 Carbon Dioxide 27 mmol/L (22-30) 01/29/19 08:30 BUN 40 mg/dL (7-17) H 01/29/19 08:30 Creatinine 1.50 mg/dL (0.52-1.04) H 01/29/19 08:30 Estimated Creat Clear 49 01/29/19 08:30 Est GFR ( Amer) > 60 (60-) 01/29/19 08:30 Est GFR (Non-Af Amer) 37 (60-) L 01/29/19 08:30 Glucose 271 mg/dL (74-106) H 01/29/19 08:30 Calcium 7.7 mg/dL (8.4-10.2) L 01/29/19 08:30 Total Bilirubin 1.1 mg/dL (0.2-1.3) 01/28/19 07:10 AST 75 U/L (15-46) H 01/28/19 07:10 ALT 51 U/L (13-69) 01/28/19 07:10 Alkaline Phosphatase 233 U/L (38-126) H 01/28/19 07:10 Troponin I 0.112 ng/mL (0.012-0.034) H 01/27/19 07:05 NT-Pro-B Natriuret Pep 21784.0 pg/mL (11.1-125.0) H 01/26/19 11:50 Total Protein 7.2 g/dL (6.3-8.2) 01/28/19 07:10 Albumin 4.0 g/dL (3.5-5.0) 01/28/19 07:10 Stool Guaiac Test Negative (NEGATIVE) 01/28/19 18:17 Assessment/Plan - Assessment/Plan (1) Acute CHF Status: Acute Qualifiers: Heart failure type: unspecified Qualified Code(s): I50.9 - Heart failure, unspecified Assessment: Repeat chest x-ray appear to show improvement in her congestive heart failure. (2) Bilateral pleural effusion Status: Acute (3) Postoperative anemia Status: Acute Assessment: stable (4) CAD (coronary artery disease) Status: Chronic Qualifiers: Coronary Disease-Associated Artery/Lesion type: [place] artery [place] vs. transplanted heart: [place] heart Associated angina: without angina Qualified Code(s): I25.10 - Atherosclerotic heart disease of [place] coronary artery without angina pectoris Assessment: stable (5) Essential hypertension Status: Acute (6) GERD without esophagitis Status: Chronic (7) CKD (chronic kidney disease) stage 3, GFR 30-59 ml/min Status: Chronic (8) Type I diabetes mellitus Status: Chronic Qualifiers: Diabetes mellitus complication status: with kidney complications Diabetes mellitus complication detail: with chronic kidney disease Chronic kidney disease stage: stage 3 (moderate) Qualified Code(s): E10.22 - Type 1 diabetes mellitus with diabetic chronic kidney disease; N18.3 - Chronic kidney disease, stage 3 (moderate) Assessment: stable
== END 2019-01-29 09:40 | disposition home or self-care (01) | DRG 291 ==
LOC: ED 10:52 → SOUTH 13:51
PROVIDERS: ADMIT Family Medicine; ATTEND Family Medicine
DX: I13.0 Hypertensive heart and chronic kidney disease with heart failure and stage 1 through stage 4 chronic kidney disease, or unspecified chronic kidney disease (principal); J96.01 Acute respiratory failure with hypoxia; G21.9 Secondary parkinsonism, unspecified; I25.10 Atherosclerotic heart disease of native coronary artery without angina pectoris; I27.20 Pulmonary hypertension, unspecified; E87.6 Hypokalemia; D64.9 Anemia, unspecified; E10.22 Type 1 diabetes mellitus with diabetic chronic kidney disease; E78.5 Hyperlipidemia, unspecified; E03.9 Hypothyroidism, unspecified; N18.3 Chronic kidney disease, stage 3 (moderate); I50.9 Heart failure, unspecified; Z79.890 Hormone replacement therapy; Z79.899 Other long term (current) drug therapy; Z79.84 Long term (current) use of oral hypoglycemic drugs; Z96.642 Presence of left artificial hip joint; Z96.612 Presence of left artificial shoulder joint; Z79.51 Long term (current) use of inhaled steroids
CPT/HCPCS: 36415; 71046; 71275; 80048; 80053; 82270; 83880; 84484; 85025; 85610; 93005; 93306; A9270; J1940; Q9967; 96374; 99283; 99284; S1016